=== PATIENT | male | born 1985 | race Caucasian/White ===

== ENCOUNTER 2018-01-15 03:02 | Emergency (ER) | payer SELFPAY ==
--- NOTE | 2018-01-15 03:23 | EDPHYS ---
Physician Documentation [facility] Name: Gregory Pedraza Age: 33 yrs Sex: Male : 1985 Arrival Date: 01/15/2018 Time: 03:08 Bed 19 Private MD: ED Physician Eddie Franks HPI: 01/15 03:19 This 33 yrs old Male presents to ER via Ambulatory with complaints of Insect ma2 Bite - Spider. 03:19 The patient was bitten on the back. Animal information: Patient/Caregiver unable to ma2 provide information related to the animal. Animal information: spider. Secondary to the bite the patient reports pain. Associated signs and symptoms: Pertinent negatives: bony tenderness, erythema at site, loss of consciousness, pain at site, swelling at site. Severity of symptoms: At their worst the symptoms were very mild, in the emergency department the symptoms have resolved. The patient has not experienced similar symptoms in the past. Historical: - Allergies: 03:18 PENICILLINS (Hives, Respiratory distress); bb - Home Meds: 03:18 None [Active]; bb - PMHx: 03:18 None; bb - PSHx: 03:18 None; bb - Immunization history:: Adult Immunizations up to date. - Social history:: Smoking status: Patient uses tobacco products, denies chronic smoking, but will smoke occasionally, Patient uses alcohol, occasionally. Patient/guardian denies using street drugs, Patient/guardian denies using alcohol, The patient lives with family, . - Ebola Screening: : No symptoms or risks identified at this time. - Family history:: not pertinent. ROS: 03:19 Constitutional: Negative for fever, chills, and weight loss, ENT: Negative for injury, ma2 pain, and discharge, Respiratory: Negative for shortness of breath, cough, wheezing, and pleuritic chest pain. 03:19 Skin: Positive for pain that resolved . 03:19 All other systems are negative. Exam: 03:19 Constitutional: This is a well developed, well nourished patient who is awake, alert, ma2 and in no acute distress. Head/Face: Normocephalic, atraumatic. Cardiovascular: Regular rate and rhythm with a normal S1 and S2. No gallops, murmurs, or rubs. Normal PMI, no JVD. No pulse deficits. Respiratory: Lungs have equal breath sounds bilaterally, clear to auscultation and percussion. No rales, rhonchi or wheezes noted. No increased work of breathing, no retractions or nasal flaring. Abdomen/GI: Soft, non-tender, with normal bowel sounds. No distension or tympany. No guarding or rebound. No evidence of tenderness throughout. Skin: Warm, dry with normal turgor. Normal color with no rashes, no lesions, and no evidence of cellulitis. Vital Signs: 03:18 BP 126 / 81; Pulse 62; Resp 16 S; Temp 98.2(O); Pulse Ox 99% on R/A; Weight 81.65 kg bb (R); Height 5 ft. 9 in. (175.26 cm) (R); 03:18 Body Mass Index 26.58 (81.65 kg, 175.26 cm) bb MDM: 03:14 Patient medically screened. ma2 03:19 Differential diagnosis: superficial laceration, cellulitis, spider bite, vs mosquito vs ma2 ant, no skin infection. Data reviewed: vital signs, nurses notes. Counseling: I had a detailed discussion with the patient and/or guardian regarding: the historical points, exam findings, and any diagnostic results supporting the discharge/admit diagnosis, to return to the emergency department if symptoms worsen or persist or if there are any questions or concerns that arise at home. Administered Medications: No medications were administered Disposition: 01/15/18 03:22 Discharged to Home. Impression: Rash and other nonspecific skin eruption. - Condition is Stable. - Discharge Instructions: Allergies. - Medication Reconciliation Form, Thank You Letter, Antibiotic Education, Prescription Opioid Use form. - Follow up: Private Physician; When: As needed; Reason: If symptoms return. - Problem is new. - Symptoms are resolved. Signatures: Jocy Aguiar RN RN bb Alzahri, Mohammad, MD MD ma2 Corrections: (The following items were deleted from the chart) 03:27 03:22 01/15/2018 03:22 Discharged to Home. Impression: Rash and other nonspecific skin bb eruption. Condition is Stable. Forms are Medication Reconciliation Form, Thank You Letter, Antibiotic Education, Prescription Opioid Use. Follow up: Private Physician; When: As needed; Reason: If symptoms return. Problem is new. Symptoms are resolved. ma2
--- NOTE | 2018-01-15 03:23 | ER ---
Nurse's Notes [facility] Name: Gregory Pedraza Age: 33 yrs Sex: Male : 1985 Arrival Date: 01/15/2018 Time: 03:08 Bed 19 Private MD: Diagnosis: Rash and other nonspecific skin eruption Presentation: 01/15 03:17 Presenting complaint: Patient states: he was asleep and felt a stinging sensation under bb left axillary area thinks he was bit by a spider. Transition of care: patient was not received from another setting of care. Onset of symptoms was January 15, 2018. Risk Assessment: Do you want to hurt yourself or someone else? Patient reports no desire to harm self or others. Initial Sepsis Screen: Does the patient meet any 2 criteria? No. Patient's initial sepsis screen is negative. Does the patient have a suspected source of infection? No. Patient's initial sepsis screen is negative. Care prior to arrival: None. 03:17 Method Of Arrival: Ambulatory bb 03:17 Acuity: TAMERA 5 bb Triage Assessment: 03:18 Bite description: bite sustained to left axillary area by unknown, animal information: bb vaccination(s) is not applicable. Historical: - Allergies: 03:18 PENICILLINS (Hives, Respiratory distress); bb - Home Meds: 03:18 None [Active]; bb - PMHx: 03:18 None; bb - PSHx: 03:18 None; bb - Immunization history:: Adult Immunizations up to date. - Social history:: Smoking status: Patient uses tobacco products, denies chronic smoking, but will smoke occasionally, Patient uses alcohol, occasionally. Patient/guardian denies using street drugs, Patient/guardian denies using alcohol, The patient lives with family, . - Ebola Screening: : No symptoms or risks identified at this time. - Family history:: not pertinent. Screenin:25 Abuse screen: Denies threats or abuse. Nutritional screening: No deficits noted. bb Tuberculosis screening: No symptoms or risk factors identified. Fall Risk None identified. Assessment: 03:25 General: Appears in no apparent distress. Behavior is calm, cooperative. Pain: Denies bb pain. Neuro: Level of Consciousness is awake, alert, obeys commands, Oriented to person, place, time, situation. Cardiovascular: No deficits noted. Respiratory: Respiratory effort is even, unlabored. GI: No deficits noted. No signs and/or symptoms were reported involving the gastrointestinal system. Derm: Skin is intact, is healthy with good turgor, Skin is pink, warm \T\ dry. Musculoskeletal: Circulation, motion, and sensation intact. 03:26 Reassessment: pt verbalized understanding of and agrees to plan of care discharge bb instructions given pt ambulated with steady gait to exit accompanied by family. Vital Signs: 03:18 BP 126 / 81; Pulse 62; Resp 16 S; Temp 98.2(O); Pulse Ox 99% on R/A; Weight 81.65 kg bb (R); Height 5 ft. 9 in. (175.26 cm) (R); 03:18 Body Mass Index 26.58 (81.65 kg, 175.26 cm) bb ED Course: 03:08 Patient arrived in ED. am2 03:14 Eddie Franks MD is Attending Physician. ma2 03:18 Triage completed. bb 03:18 Arm band placed on Patient placed in an exam room, on a stretcher, on pulse oximetry. bb Family accompanied patient. 03:25 Jocy Aguiar, SYLVESTER is Primary Nurse. bb 03:25 Patient has correct armband on for positive identification. Call light in reach. Pulse bb ox on. NIBP on. 03:25 No provider procedures requiring assistance completed. Patient did not have IV access bb during this emergency room visit. Administered Medications: No medications were administered Outcome: 03:22 Discharge ordered by . ma2 03:26 Discharged to home ambulatory, with family. bb 03:26 Condition: stable 03:26 Discharge instructions given to patient, Instructed on discharge instructions, follow up and referral plans. Demonstrated understanding of instructions, follow-up care. 03:27 Patient left the ED. bb Signatures: Jocy Aguiar RN RN bb Moreno, Amanda am2 Eddie Franks MD MD [facility]
== END 2018-01-15 03:27 | disposition home or self-care (01) ==
LOC: ER 03:02
DX: R21 Rash and other nonspecific skin eruption (principal); F17.200 Nicotine dependence, unspecified, uncomplicated
CPT/HCPCS: 99283

== ENCOUNTER 2022-02-05 14:14 | Emergency (ER) | payer OTHER, SELFPAY ==
--- OUTSIDE RECORDS SUMMARY | 2022-02-05 14:18 | XMS REPORT | Continuity of Care Document ---
:[address] [facility] t Address [address] [place] [address] Care Team Providers Name Role Phone Robert, Janneth Attending Clinician Unavailable Problems This patient has no known problems. Allergies, Adverse Reactions, Alerts This patient has no known allergies or adverse reactions. Medications This patient has no known medications. Procedures This patient has no known procedures. Encounters Start End Encounter Admission Attending Care Care Encounter Source Date/Time Date/Time Type Type Clinicians Facility Department ID 2021-08-16 Outpatient Jakob [facility] [id number] Common 15:09:04 Janneth [facility] 2021-07-27 Outpatient NILSON Robert [facility] [id number] Common 14:36:53 Janneth [facility] 2021-07-19 2021-07-19 ambulatory [facility] [id number] Common 00:00:00 00:00:00 [facility] Results This patient has no known results.
[2022-02-05] MEDS ORDERED: NA CHLORIDE 0.9% 1,000 ML ONE (15:11)
[2022-02-05 15:16] LABS: Absolute Lymphocytes (CBC) 2.4 K/uL (0.7-4.9); Hematocrit 41.1 % (39.6-49.0); Lymphocytes % 40.9 % (15.3-44.8); MCV 85.9 fL (80-100); MPV 6.8 fL (7.6-11.3); RBC Red Blood Cell Count 4.79 M/uL (4.33-5.43)
[2022-02-05 15:22] LABS: Urine Blood Negative (Negative); Urine Glucose Negative (Negative); Urine Protein Negative (Negative); Urine Specific Gravity 1.025 (1.005-1.030); Urine pH 5.5 (5.0-7.0)
[2022-02-05 15:33] LABS: Potassium 3.9 mmol/L (3.5-5.1); Troponin High Sensitivity 4.1 pg/mL (<58.9)
[2022-02-05 15:43] LABS: Barbiturates NEGATIVE (NEGATIVE); Benzodiazepines NEGATIVE (NEGATIVE); Cocaine NEGATIVE (NEGATIVE); METHAMPHETAM NEGATIVE (NEGATIVE); Methadone NEGATIVE (NEGATIVE); Opiates NEGATIVE (NEGATIVE); Phencyclidine NEGATIVE (NEGATIVE); THC Cannibis POSITIVE (NEGATIVE)
--- NOTE | 2022-02-05 16:04 | RAD REPORT ---
EXAM DESCRIPTION: Eduardo Single View02/05/2022 3:45 pm CLINICAL HISTORY: Chest pain COMPARISON: none FINDINGS: The lungs appear clear of acute infiltrate. The heart is normal size IMPRESSION: No acute abnormalities displayed
--- NOTE | 2022-02-05 16:09 | ER ---
Nurse's Notes [facility] Name: Gregory Pedraza Age: 37 yrs Sex: Male : 1985 Arrival Date: 02/05/2022 Time: 14:15 Bed 17 Private MD: Diagnosis: Other specified anxiety disorders Presentation: 02/05 14:31 Chief complaint: Patient states: has been having numbness in left arm X 4 days, today iw was sitting and playing cards and felt like he was going to pass out , I felt a lot of pressure in my upper body, on the way over here I felt like maybe a panic attack and felt like I was going to pass out , right now my upper right arm is hurting and my fingers are going numb. Coronavirus screen: At this time, the client does not indicate any symptoms associated with coronavirus-19. Ebola Screen: Patient negative for fever greater than or equal to 101.5 degrees Fahrenheit, and additional compatible Ebola Virus Disease symptoms Patient denies exposure to infectious person. Patient denies travel to an Ebola-affected area in the 21 days before illness onset. No symptoms or risks identified at this time. Initial Sepsis Screen: Does the patient meet any 2 criteria? No. Patient's initial sepsis screen is negative. Does the patient have a suspected source of infection? No. Patient's initial sepsis screen is negative. Risk Assessment: Do you want to hurt yourself or someone else? Patient reports no desire to harm self or others. Onset of symptoms was February 01, 2022. 14:31 Method Of Arrival: Ambulatory iw 14:31 Acuity: TAMERA 3 iw Triage Assessment: 14:40 General: Appears in no apparent distress. Behavior is calm, cooperative, appropriate ll1 for age. Respiratory: Reports shortness of breath none now the patient has mild shortness of breath. Respiratory: Airway is patent Trachea midline Respiratory effort is even, unlabored. Historical: - Allergies: 14:34 PENICILLINS (Hives, Respiratory distress); iw - Home Meds: 14:34 None [Active]; iw - PMHx: 14:35 None; iw - PSHx: 14:34 None; iw - Immunization history:: Adult Immunizations unknown. - Social history:: Smoking status: Patient uses street drugs, marijuana. Screenin:40 Abuse screen: Denies threats or abuse. Nutritional screening: No deficits noted. ll1 Tuberculosis screening: No symptoms or risk factors identified. Fall Risk Total Carmichael Fall Scale indicates No Risk (0-24 pts). Assessment: 14:40 General: Appears in no apparent distress. Behavior is calm, cooperative, appropriate ll1 for age. Pain: Complains of pain in left arm Quality of pain is described as aching, pressure, Pain began 2-3 days ago. Is intermittent, episodic. Cardiovascular: Heart tones S1 S2 Rhythm is regular. Respiratory: Airway is patent Respiratory effort is even, unlabored, Breath sounds are clear bilaterally. Musculoskeletal: Reports numbness in left arm pain in left arm. 15:40 Reassessment: No changes from previously documented assessment. Patient and/or family ll1 updated on plan of care and expected duration. Pain level reassessed. 16:24 Reassessment: Patient appears in no apparent distress at this time. Patient is alert, vg1 oriented x 3, equal unlabored respirations, skin warm/dry/pink. Patient denies pain at this time. Patient states feeling better. Vital Signs: 14:31 BP 133 / 82; Pulse 74; Resp 16; Temp 98.1; Pulse Ox 98% on R/A; Weight 97.52 kg; Height iw 5 ft. 10 in. (177.80 cm); 16:24 BP 125 / 69; Pulse 80; Resp 16; Pulse Ox 100% on R/A; vg1 14:31 Body Mass Index 30.85 (97.52 kg, 177.80 cm) iw ED Course: 14:15 Patient arrived in ED. as 14:34 Triage completed. iw 14:35 Arm band placed on. iw 14:38 Patient placed in an exam room, on a stretcher. ll1 14:39 Alex Turner is PHCP. jl9 14:39 Dong Mchugh MD is Attending Physician. jl9 14:40 Patient has correct armband on for positive identification. Bed in low position. Call ll1 light in reach. Side rails up X 1. Client placed on continuous cardiac and pulse oximetry monitoring. NIBP monitoring applied. 14:48 Cricket White, SYLVESTER is Primary Nurse. ll1 15:47 XRAY Chest (1 view) In Process Unspecified. EDMS 16:08 Dong Mchugh MD is Referral Physician. jl9 16:25 No provider procedures requiring assistance completed. IV discontinued, intact, vg1 bleeding controlled, No redness/swelling at site. Pressure dressing applied. Administered Medications: 15:14 Drug: NS 0.9% 1000 ml Route: IV; Rate: 1000 ml; Site: right antecubital; ll1 16:25 Follow up: Response: No adverse reaction; IV Status: Completed infusion; IV Intake: ll1 1000ml Medication: 14:38 VIS not applicable for this client. ll1 Intake: 16:25 IV: 1000ml; Total: 1000ml. ll1 Outcome: 16:08 Discharge ordered by MD. stevenson 16:25 Discharged to home ambulatory. vg1 16:25 Condition: good 16:25 Discharge instructions given to patient, Instructed on discharge instructions, follow up and referral plans. medication usage, Demonstrated understanding of instructions, follow-up care, medications, Prescriptions given X 1. 16:32 Patient left the ED. 1 Signatures: Dispatcher [employer] Toma Noel Irene, RN RN iw Garcia, Victoria RN RN [email or web address] Cricket White RN RN ll1 Alex Turner9 Corrections: (The following items were deleted from the chart) 14:35 14:31 Pulse 74bpm; Resp 16bpm; Pulse Ox 98% RA; 97.52 kg; Height 5 ft. 10 in.; BMI: iw 30.8; iw
--- NOTE | 2022-02-05 16:09 | EDPHYS ---
Physician Documentation [facility] Name: Gregory Pedraza Age: 37 yrs Sex: Male : 1985 Arrival Date: 02/05/2022 Time: 14:15 Bed 17 Private MD: ED Physician Dong Mchugh HPI: 02/05 15:42 This 37 yrs old Male presents to ER via Ambulatory with complaints of jl9 Numbness Of Arm, Near Syncope, Shortness Of Breath, all earlier today. Currently asymptomatic. Patient reports that he has udiagnosed anxiety. . 15:42 The complaints affect the posterior aspect of left shoulder, left axilla, left tricep, jl9 left elbow, left wrist, left hand and palmar aspect of left forearm. Context: resulted from. Onset: The symptoms/episode began/occurred this morning. Associated signs and symptoms:. Severity of symptoms: in the emergency department the symptoms have resolved. Historical: - Allergies: 14:34 PENICILLINS (Hives, Respiratory distress); iw - Home Meds: 14:34 None [Active]; iw - PMHx: 14:35 None; iw - PSHx: 14:34 None; iw - Immunization history:: Adult Immunizations unknown. - Social history:: Smoking status: Patient uses street drugs, marijuana. ROS: 15:44 Constitutional: Negative for fever, chills, and weight loss, Eyes: Negative for injury, jl9 pain, redness, and discharge, ENT: Negative for injury, pain, and discharge, Neck: Negative for injury, pain, and swelling, Cardiovascular: Negative for chest pain, palpitations, and edema, Respiratory: Negative for shortness of breath, cough, wheezing, and pleuritic chest pain, Abdomen/GI: Negative for abdominal pain, nausea, vomiting, diarrhea, and constipation, Back: Negative for injury and pain, : Negative for injury, bleeding, discharge, and swelling, MS/Extremity: Negative for injury and deformity, Skin: Negative for injury, rash, and discoloration, Neuro: Negative for headache, weakness, numbness, tingling, and seizure, Psych: Negative for depression, anxiety, suicide ideation, homicidal ideation, and hallucinations, Allergy/Immunology: Negative for hives, rash, and allergies, Endocrine: Negative for neck swelling, polydipsia, polyuria, polyphagia, and marked weight changes. Exam: 15:44 Constitutional: This is a well developed, well nourished patient who is awake, alert, jl9 and in no acute distress. Head/Face: Normocephalic, atraumatic. Eyes: Pupils equal round and reactive to light, extra-ocular motions intact. Lids and lashes normal. Conjunctiva and sclera are non-icteric and not injected. Cornea within normal limits. Periorbital areas with no swelling, redness, or edema. ENT: Mucous membranes moist. Neck: Trachea midline, no thyromegaly or masses palpated, and no cervical lymphadenopathy. Supple, full range of motion without nuchal rigidity, or vertebral point tenderness. No Meningismus. Chest/axilla: Normal chest wall appearance and motion. Nontender with no deformity. No lesions are appreciated. Cardiovascular: Regular rate and rhythm with a normal S1 and S2. No gallops, murmurs, or rubs. Normal PMI, no JVD. No pulse deficits. Respiratory: Lungs have equal breath sounds bilaterally, clear to auscultation and percussion. No rales, rhonchi or wheezes noted. No increased work of breathing, no retractions or nasal flaring. Abdomen/GI: Soft, non-tender, with normal bowel sounds. No distension or tympany. No guarding or rebound. No evidence of tenderness throughout. Back: No spinal tenderness. No costovertebral tenderness. Full range of motion. Skin: Warm, dry with normal turgor. Normal color with no rashes, no lesions, and no evidence of cellulitis. MS/ Extremity: Pulses equal, no cyanosis. Neurovascular intact. Full, normal range of motion. Neuro: Awake and alert, GCS 15, oriented to person, place, time, and situation. Cranial nerves II-XII grossly intact. Motor strength 5/5 in all extremities. Sensory grossly intact. Cerebellar exam normal. Normal gait. Psych: Awake, alert, with orientation to person, place and time. Behavior, mood, and affect are within normal limits. Vital Signs: 14:31 BP 133 / 82; Pulse 74; Resp 16; Temp 98.1; Pulse Ox 98% on R/A; Weight 97.52 kg; Height iw 5 ft. 10 in. (177.80 cm); 16:24 BP 125 / 69; Pulse 80; Resp 16; Pulse Ox 100% on R/A; vg1 14:31 Body Mass Index 30.85 (97.52 kg, 177.80 cm) iw MDM: 14:39 Patient medically screened. [facility] 15:42 Test interpretation: by ED physician or midlevel provider: ECG, NSR 64bpm. [facility] 15:45 Data reviewed: vital signs, nurses notes. 16:07 Counseling: I had a detailed discussion with the patient and/or guardian regarding: the [facility] historical points, exam findings, and any diagnostic results supporting the discharge/admit diagnosis, lab results, the need for outpatient follow up, to return to the emergency department if symptoms worsen or persist or if there are any questions or concerns that arise at home. 02/05 14:40 Order name: Basic Metabolic Panel; Complete Time: 15:45 02/05 14:40 Order name: CBC with Diff; Complete Time: 15:45 [facility] 02/05 14:40 Order name: Troponin HS; Complete Time: 15:45 [facility] 02/05 14:40 Order name: XRAY Chest (1 view); Complete Time: 16:07 02/05 14:40 Order name: UDS; Complete Time: 15:45 02/05 15:22 Order name: Urine Dipstick-Ancillary; Complete Time: 15:45 [facility] 02/05 14:40 Order name: EKG; Complete Time: 14:41 02/05 14:40 Order name: Cardiac monitoring; Complete Time: 15:14 [facility] 02/05 14:40 Order name: EKG - Nurse/Tech; Complete Time: 15:01 [facility] 02/05 14:40 Order name: IV Saline Lock; Complete Time: 14:48 02/05 14:40 Order name: Labs collected and sent; Complete Time: 14:48 02/05 14:40 Order name: Urine Dipstick-Ancillary (obtain specimen); Complete Time: 15:18 Administered Medications: 15:14 Drug: NS 0.9% 1000 ml Route: IV; Rate: 1000 ml; Site: right antecubital; ll1 16:25 Follow up: Response: No adverse reaction; IV Status: Completed infusion; IV Intake: ll1 1000ml Disposition Summary: 02/05/22 16:08 Discharge Ordered Location: Home jl9 Condition: Stable jl9 Diagnosis - Other specified anxiety disorders jl9 Followup: jl9 - With: Dong Mchugh MD - When: 1 - 2 days - Reason: Recheck today's complaints, Continuance of care, Re-evaluation by your physician Discharge Instructions: - Discharge Summary Sheet jl9 - Managing Anxiety, Adult jl9 Forms: - Medication Reconciliation Form jl9 - Thank You Letter jl9 - Antibiotic Education jl9 - Prescription Opioid Use jl9 Prescriptions: - Hydroxyzine HCl 25 mg Oral Tablet - take 1 tablet by ORAL route every 6 hours As needed; 30 tablet; Refills: 0, jl9 Product Selection Permitted Signatures: Dispatcher [employer] EDJyotsna Hastings RN RN iw Lewis, Lynsay, RN RN [facility] Alex Turner jl9
[2022-02-05 16:50] VITALS: TEMP 98.1
[2022-02-05 16:52] VITALS: BP 125/69; O2SAT 100
--- NOTE | 2022-02-06 13:46 | EKG ---
Test Date: 2022-02-05 Test Time: 15:02:18 Tree Farmer: [place] MEASUREMENT RESULTS: Intervals: Rate: 64 MA: 152 QRSD: 84 QT: 358 QTc: 369 [place]: P: 47 MA: 152 QRS: 70 T: 72 INTERPRETIVE STATEMENTS: Normal sinus rhythm with sinus arrhythmia Normal ECG No previous ECG available for comparison Electronically Signed On 02-06-22 13:43:42 CDT by Sawyer Elizabeth
== END 2022-02-05 16:32 | disposition home or self-care (01) ==
LOC: ER 14:14
DX: F41.8 Other specified anxiety disorders (principal); R55 Syncope and collapse; Z88.0 Allergy status to penicillin
CPT/HCPCS: 93005; 85025; 80048; 36415; 81003; 84484; 80307; 71045; 96360; 99283; J7030

== ENCOUNTER 2022-06-29 09:49 | Emergency (ER) | payer OTHER, SELFPAY ==
--- OUTSIDE RECORDS SUMMARY | 2022-06-29 09:53 | XMS REPORT | Continuity of Care Document ---
:1985 Author Organization [facility] t Address [address] [place] [address] Care Team Providers Name Role Phone Jakob Janneth Attending Clinician Unavailable Payers Payer Name Policy Type Policy Number Effective Date Expiration Date S [place] [id number] [id number] [facility] Blue Cross Blue 6 [id number] 2018 [facility] 00:00:00 [facility] Problems Condition Condition Condition Status Onset Resolution Last Treating Co mments Source Name Details Category Date Date Treatment Clinician Date [id number] Marijuana Problem Active Comm on abuse [facility] Allergies, Adverse Reactions, Alerts Allergy Allergy Status Severity Reaction(s) Onset Inactive Treating Comm ents Source Name Type Date Date Clinician penicill penicill Active Unknown Commo n in V in V [facility] Social History Social Habit Start Date Stop Date Quantity Comments Source History of Tobacco Use Co mmon [facility] Sex Assigned At Com mon [facility] Smoking Status Start Date Stop Date Source Former Smoker 2022-02-06 00:00:00 2022-02-06 00:00:00 [facility] Medications Ordered Filled Start Stop Current Ordering Indication Dosage Frequency Signature Comments Components Source Medication Medication Date Date Medication? Clinician (SIG) Name Name Ibuprofen Ibuprofen No TID Ibuprofen 800 MG 800 MG 800 MG Ibuprofen Ibuprofen No TID Ibuprofen 800 MG 800 MG 800 MG hydrOXYzine hydrOXYzine No 1{table QD hydrOXYzin HCl 25 MG HCl 25 MG t_at_be e HCl 25 dtime_a MG s_neede d} Ibuprofen Ibuprofen No TID Ibuprofen 800 MG 800 MG 800 MG hydrOXYzine hydrOXYzine No 1{table QD hydrOXYzin HCl 25 MG HCl 25 MG t_at_be e HCl 25 dtime_a MG s_neede d} Vital Signs Vital Name Observation Time Observation Value Comments Source height 2022-02-07 08:20:00 70 [in_i] [facility] weight 2022-02-07 08:20:00 215 [lb_av] [facility] bmi 2022-02-07 08:20:00 30.85 kg/m2 [facility] blood pressure 2022-02-07 08:20:00 135 mm[Hg] [facility] blood pressure 2022-02-07 08:20:00 83 mm[Hg] [facility] - diastolic [facility] height 2021-07-19 11:00:00 70 [in_i] [facility] weight 2021-07-19 11:00:00 221.0 [lb_av] [facility] temperature 2021-07-19 11:00:00 97.9 [degF] [facility] bmi 2021-07-19 11:00:00 31.71 kg/m2 [facility] oximetry 2021-07-19 11:00:00 98 % [facility] respiratory rate 2021-07-19 11:00:00 16 /min Comm on [facility] blood pressure 2021-07-19 11:00:00 132 mm[Hg] Common [facility] - systolic [facility] blood pressure 2021-07-19 11:00:00 70 mm[Hg] [facility] Procedures This patient has no known procedures. Encounters Start End Encounter Admission Attending Care Care Encounter Source Date/Time Date/Time Type Type Clinicians Facility Department ID 2022-03-[address] [facility] [id number] Common 14:09:02 Janneth [facility] 2022-02-06 Outpatient Robert, STLMLC STLMLC [id number] Common 08:26:02 Janneth [facility] 2021-08-16 Outpatient Robert, STLMLC STLMLC [id number] Common 15:09:04 Janneth [facility] 2021-07-27 Outpatient Robert, STLMLC STLMLC [id number] Common 14:36:53 Janneth [facility] 2022-02-07 2022-02-07 OFFICE STLMLC STLMLC [id number] Co mmon 00:00:00 00:00:00 VISIT EST Spir it PT LEVEL 3 [facility] 2022-02-06 2022-02-06 (TEL) STLMLC STLMLC [id number] Co mmon 00:00:00 00:00:00 [facility] 2021-07-19 2021-07-19 OFFICE STLMLC STLMLC [id number] Co mmon 00:00:00 00:00:00 VISIT EST Spir it PT LEVEL 3 [facility] Results This patient has no known results.
[2022-06-29 11:24] LABS: Absolute Lymphocytes (CBC) 1.4 K/uL (0.7-4.9); Hematocrit 43.7 % (39.6-49.0); Lymphocytes % 18.6 % (15.3-44.8); MCV 85.8 fL (80-100); MPV 6.7 fL (7.6-11.3); RBC Red Blood Cell Count 5.09 M/uL (4.33-5.43)
[2022-06-29 11:43] LABS: Albumin 4.1 g/dL (3.4-5.0); Bilirubin Direct 0.1 mg/dL (0-0.2); Bilirubin Total 0.5 mg/dL (0.2-1.0); Potassium 4.1 mmol/L (3.5-5.1); Protein, Total 7.7 g/dL (6.4-8.2); Troponin High Sensitivity 9.9 pg/mL (<58.9)
--- NOTE | 2022-06-29 11:59 | RAD REPORT ---
EXAM DESCRIPTION: RAD - Chest Single View - 06/29/2022 11:49 am CLINICAL HISTORY: epigastric pain COMPARISON: Chest Single View dated 02/05/2022 FINDINGS: Lines: None. Lungs: No evidence of edema or pneumonia. Pleural: No significant pleural effusions or pneumothorax. Cardiac: The heart size is within normal limits. Mediastinum: Within normal limits. Bones: No acute fractures. Other: None IMPRESSION: No acute cardiopulmonary disease.
--- NOTE | 2022-06-29 13:15 | EDPHYS ---
Physician Documentation [facility] Name: Gregory Pedraza Age: 37 yrs Sex: Male : 1985 Arrival Date: 06/29/2022 Time: 09:52 Bed IW2 Private MD: ED Physician Neyda Borja HPI: 06/29 11:05 This 37 yrs old Male presents to ER via Ambulatory with complaints of Weakness - after cp workout, shaky. 11:05 The patient has experienced near-syncope. cp 11:05 Onset: The symptoms/episode began/occurred this morning, after working out. cp 11:05 Current symptoms: Currently, the patient is not experiencing any symptoms, the patient cp feels back to baseline. Patient reports working out this morning and after taking shower had episode of general weakness, felt shaky, lightheaded and almost lost consciousness. Denies chest pain. Reports intermittent epigastric abdominal pain for past 2 months. Historical: - Allergies: 11:38 PENICILLINS; bp - Home Meds: 11:38 None [Active]; bp - PMHx: 11:38 None; bp - Immunization history:: Adult Immunizations up to date. - Social history:: Smoking status: Patient denies any tobacco usage or history of. ROS: 11:10 Constitutional: Negative for body aches, chills, fever, poor PO intake. cp 11:10 Eyes: Negative for injury, pain, redness, and discharge. cp 11:10 ENT: Negative for drainage from ear(s), ear pain, sore throat, difficulty swallowing, difficulty handling secretions. 11:10 Cardiovascular: Negative for chest pain, edema, palpitations. 11:10 Respiratory: Negative for cough, shortness of breath, wheezing. 11:10 Abdomen/GI: Positive for abdominal pain, of the epigastric area, intermittent pain, Negative for nausea, vomiting, and diarrhea, constipation, anorexia, black/tarry stool, rectal bleeding. 11:10 Back: Negative for pain at rest, pain with movement. cp 11:10 Neuro: Positive for near syncope, weakness, Negative for altered mental status, headache, numbness. 11:10 All other systems are negative. Exam: 11:15 Constitutional: The patient appears in no acute distress, alert, awake, comfortable, cp non-diaphoretic, non-toxic, well developed, well nourished. 11:15 Head/Face: Normocephalic, atraumatic. cp 11:15 Eyes: Periorbital structures: appear normal, Conjunctiva: normal, no exudate, no injection, Sclera: no appreciated abnormality, Lids and lashes: appear normal, bilaterally. 11:15 ENT: External ear(s): are unremarkable, Nose: is normal, Mouth: Lips: moist, Oral mucosa: pink and intact, moist, Posterior pharynx: Airway: no evidence of obstruction, patent, erythema, is not appreciated, exudate, is not appreciated. 11:15 Neck: ROM/movement: is normal, is supple, without pain, no range of motions limitations. 11:15 Chest/axilla: Inspection: normal, Palpation: is normal, no crepitus, no tenderness. 11:15 Cardiovascular: Rate: normal, Rhythm: regular, Heart sounds: murmur, not appreciated, Edema: is not appreciated, JVD: is not appreciated. 11:15 Respiratory: the patient does not display signs of respiratory distress. 11:15 Abdomen/GI: Inspection: abdomen appears normal, Palpation: abdomen is soft and non-tender, in all quadrants. 11:15 Back: pain, is absent, ROM is normal. 11:15 Neuro: Orientation: to person, place \T\ time. Mentation: is normal, Motor: moves all cp fours, strength is normal, Sensation: is normal, Gait: is steady, at a normal pace, without difficulty. 11:45 ECG was reviewed by the Attending Physician. cp Vital Signs: 11:36 BP 143 / 92; Pulse 73; Resp 16; Temp 98; Pulse Ox 98% ; Weight 90.72 kg; Height 5 ft. bp 10 in. (177.80 cm); 11:36 Body Mass Index 28.70 (90.72 kg, 177.80 cm) bp MDM: 11:58 Patient medically screened. cp 12:00 Differential Diagnosis: cardiac arrhythmia, drug effect, GI bleed, vasovagal episode. cp 13:14 Data reviewed: vital signs, nurses notes. cp 13:14 Test interpretation: by ED physician or midlevel provider: ECG, plain radiologic cp studies. Counseling: I had a detailed discussion with the patient and/or guardian regarding: the historical points, exam findings, and any diagnostic results supporting the discharge/admit diagnosis, lab results, radiology results, the need for outpatient follow up, a family practitioner, to return to the emergency department if symptoms worsen or persist or if there are any questions or concerns that arise at home. ED course: VSS. Labs, EKG and chest xray reviewed. Patient denies significant family history of cardiac disease but reports not knowing family history of biological parents. Will discharge to home for continued monitoring. 06/29 11:02 Order name: Basic Metabolic Panel; Complete Time: 12: cp 06/29 12:31 Interpretation: Normal except: GLUC 108. cp 06/29 11:02 Order name: CBC with Diff; Complete Time: 12: cp 06/29 12: Interpretation: Normal except: MPV 6.7; SWAPNA% 74.1. cp 06/29 11:02 Order name: D-Dimer; Complete Time: 12: cp 06/29 11:02 Order name: LFT's; Complete Time: 12: cp 06/29 11:02 Order name: Troponin HS; Complete Time: 12: cp 06/29 11:02 Order name: CK; Complete Time: 12: cp 06/29 11:02 Order name: XRAY Chest (1 view); Complete Time: 12: cp 06/29 11:02 Order name: EKG; Complete Time: 11: cp 06/29 11:02 Order name: EKG - Nurse/Tech; Complete Time: :40 cp 06/29 11:02 Order name: IV Saline Lock; Complete Time: : cp 06/29 11:02 Order name: Labs collected and sent; Complete Time: : cp 06/29 11:02 Order name: O2 Per Protocol; Complete Time: :40 cp 06/29 11:02 Order name: O2 Sat Monitoring; Complete Time: :40 cp EC:45 Rate is 67 beats/min. Rhythm is regular. IN interval is normal. QRS interval is normal. cp QT interval is normal. T waves are Inverted in lead aVR. Interpreted by me. Reviewed by me. Administered Medications: No medications were administered Disposition Summary: 06/29/22 13:14 Discharge Ordered Location: Home cp Problem: new cp Symptoms: have improved cp Condition: Stable cp Diagnosis - Syncope Near cp - Other fatigue cp Followup: cp - With: Private Physician - When: 2 - 3 days - Reason: Worsening of condition Discharge Instructions: - Discharge Summary Sheet cp - Near-Syncope cp - Fatigue cp Forms: - Medication Reconciliation Form cp - Thank You Letter cp - Antibiotic Education cp - Prescription Opioid Use cp Addendum: 07/03/2022 17:39 STAFF ATTESTATION STATEMENT: I was immediately available onsite in the emergency s d2 department for consultation in the care of this patient. I did not see or examine this patient. Neyda Borja MD. Signatures: Dispatcher [employer] EDMS Dong Vásquez PA PA cp Peltier, Brian, RN RN bp Neyda Borja MD MD sd2 Corrections: (The following items were deleted from the chart) 06/30 12:47 06/29 11:05 Patient reports working out this morning and after taking shower had cp episode of general weakness, felt shaky, lightheaded and almost lost consciousness. Denies chest pain, denies abdominal pain. cp
--- NOTE | 2022-06-29 13:15 | ER ---
Nurse's Notes [facility] Name: Gregory Pedraza Age: 37 yrs Sex: Male : 1985 Arrival Date: 06/29/2022 Time: 09:52 Bed IW2 Private MD: Diagnosis: Syncope Near;Other fatigue Presentation: 06/29 11:36 Chief complaint: Patient states: NEAR SYNCOPE, WEAKNESS AND DIAPHORESIS AFTER WORKOUT bp THIS AM. Coronavirus screen: At this time, the client does not indicate any symptoms associated with coronavirus-19. Ebola Screen: No symptoms or risks identified at this time. 11:36 Method Of Arrival: Ambulatory bp 11:38 Initial Sepsis Screen: Does the patient meet any 2 criteria? No. Patient's initial bp sepsis screen is negative. Does the patient have a suspected source of infection? No. Patient's initial sepsis screen is negative. Risk Assessment: Do you want to hurt yourself or someone else? Patient reports no desire to harm self or others. Onset of symptoms was June 29, 2022 at 06:00. 11:38 Acuity: TAMERA 3 bp Triage Assessment: 11:38 General: Appears in no apparent distress. Behavior is cooperative, appropriate for age, bp anxious. Pain: Denies pain. EENT: No deficits noted. Neuro: No deficits noted. Cardiovascular: No deficits noted. Respiratory: No deficits noted. GI: No signs and/or symptoms were reported involving the gastrointestinal system. : No signs and/or symptoms were reported regarding the genitourinary system. Derm: No deficits noted. Musculoskeletal: No deficits noted. Historical: - Allergies: 11:38 PENICILLINS; bp - Home Meds: 11:38 None [Active]; bp - PMHx: 11:38 None; bp - Immunization history:: Adult Immunizations up to date. - Social history:: Smoking status: Patient denies any tobacco usage or history of. Vital Signs: 11:36 BP 143 / 92; Pulse 73; Resp 16; Temp 98; Pulse Ox 98% ; Weight 90.72 kg; Height 5 ft. bp 10 in. (177.80 cm); 11:36 Body Mass Index 28.70 (90.72 kg, 177.80 cm) bp ED Course: 09:52 Patient arrived in ED. am2 09:53 Dong Vásquez PA is PHCP. cp 09:53 Neyda Borja MD is Attending Physician. cp 11:29 Troponin HS Sent. rs5 11:29 LFT's Sent. rs5 11:29 CBC with Diff Sent. rs5 11:29 Basic Metabolic Panel Sent. rs5 11:30 Inserted saline lock: in right antecubital area, using aseptic technique. Blood rs5 collected. 11:38 Triage completed. bp 11:38 Arm band placed on. bp 11:50 XRAY Chest (1 view) In Process Unspecified. EDMS Administered Medications: No medications were administered Outcome: 13:14 Discharge ordered by . cp 13:24 Patient left the ED. kb Signatures: Dispatcher [employer] EDMS Ruthann Chaney, ROTOR COIL TAPER-C ROTOR COIL TAPER-Ckb Dong Vásquez PA PA cp Moreno, Amanda am2 Peltier, Brian, RN RN bp Iglesia Castillo rs5
[2022-06-29 13:34] VITALS: BP 143/92; TEMP 98; O2SAT 98
--- NOTE | 2022-06-30 14:52 | EKG ---
Test Date: 2022-06-29 Test Time: 11:38:18 Upper Inspector: LORI MEASUREMENT RESULTS: Intervals: Rate: 67 GA: 142 QRSD: 82 QT: 366 QTc: 386 [place]: P: 38 GA: 142 QRS: 60 T: 66 INTERPRETIVE STATEMENTS: Normal sinus rhythm with sinus arrhythmia Normal ECG Compared to ECG 02/05/2022 15:02:18 No significant changes Electronically Signed On 06-30-22 14:50:46 ELECTRONIC EQUIPMENT SET UP OPERATOR by Sawyer Elizabeth
== END 2022-06-29 13:24 | disposition home or self-care (01) ==
LOC: ER 09:49
DX: R55 Syncope and collapse (principal); R53.83 Other fatigue; R10.13 Epigastric pain; R53.1 Weakness; Z88.0 Allergy status to penicillin
CPT/HCPCS: 36415; 71045; 80048; 80076; 82550; 84484; 85025; 85379; 93005; 99283

== ENCOUNTER 2023-02-27 08:06 | Emergency (ER) | payer SELFPAY ==
--- OUTSIDE RECORDS SUMMARY | 2023-02-27 08:09 | XMS REPORT | Continuity of Care Document ---
:[address] [facility] t Address [address] [place] [address] [address] [place] [address] Care Team Providers Name Role Phone Jakob Janneth Attending Clinician Unavailable Payers Payer Name Policy Type Policy Number Effective Date Expiration Date S [place] [id number] [facility] Blue Cross Blue 6 [id number] 2018 [facility] 00:00:00 [facility] Problems Condition Condition Condition Status Onset Resolution Last Treating Co mments Source Name Details Category Date Date Treatment Clinician Date [id number] Marijuana Problem Active Comm on abuse [facility] Allergies, Adverse Reactions, Alerts Allergy Allergy Status Severity Reaction(s) Onset Inactive Treating Comm ents Source Name Type Date Date Clinician penicill penicill Active Unknown Commo n in V in V [facility] Social History Social Habit Start Date Stop Date Quantity Comments Source History of Tobacco Use Co mmon [facility] Sex Assigned At Com mon [facility] Smoking Status Start Date Stop Date Source Former Smoker 2022-02-06 00:00:00 2022-02-06 00:00:00 [facility] Medications Ordered Filled Start Stop Current Ordering [...] Comments Source height 2022-02-07 08:20:00 70 [in_i] [facility] weight 2022-02-07 08:20:00 215 [lb_av] [facility] bmi 2022-02-07 08:20:00 30.85 kg/m2 [facility] blood pressure 2022-02-07 08:20:00 135 mm[Hg] [facility] systolic [facility] blood pressure 2022-02-07 08:20:00 83 mm[Hg] [facility] - diastolic [facility] height 2021-07-19 11:00:00 70 [in_i] [facility] weight 2021-07-19 11:00:00 221.0 [lb_av] [facility] temperature 2021-07-19 11:00:00 97.9 [degF] [facility] bmi 2021-07-19 11:00:00 31.71 kg/m2 [facility] oximetry 2021-07-19 11:00:00 98 % [facility] respiratory rate 2021-07-19 11:00:00 16 /min Comm on [facility] blood pressure 2021-07-19 11:00:00 132 mm[Hg] Common [facility] - systolic [facility] blood pressure 2021-07-19 11:00:00 70 mm[Hg] [facility] diastolic [facility] Procedures This patient has no known procedures. Encounters Start End Encounter Admission Attending Care Care Encounter Source Date/Time Date/Time Type Type Clinicians Facility Department ID 2022-03-17 Outpatient NILSON Robert [facility] [id number] Common 14:09:02 Janneth [facility] 2022-02-06 Outpatient Robert, STLMLC STLMLC [id number] Common 08:26:02 Janneth [facility] 2021-08-16 Outpatient Robert, STLMLC STLMLC [id number] Common 15:09:04 Janneth [facility] 2021-07-27 Outpatient Robert, STLMLC STLMLC [id number] Common 14:36:53 Janneth [facility] 2022-02-07 2022-02-07 OFFICE STLMLC STLMLC [id number] Co mmon 00:00:00 00:00:00 VISIT EST Spir it PT LEVEL 3 [facility] 2022-02-06 2022-02-06 (TEL) STLMLC STLMLC [id number] Co mmon 00:00:00 00:00:00 [facility] 2021-07-19 2021-07-19 OFFICE STLMLC STLMLC [id number] Co mmon 00:00:00 00:00:00 VISIT EST Spir it PT LEVEL 3 [facility] Results This patient has no known results.
--- NOTE | 2023-02-27 08:29 | ER ---
Nurse's Notes [facility] Name: Gregory Pedraza Age: 38 yrs Sex: Male : 1985 Arrival Date: 02/27/2023 Time: 08:06 Bed 7 Private MD: Diagnosis: Tinnitus, bilateral Presentation: 02/27 08:17 Chief complaint: Patient states: his ears started ringing on Sunday02/25/23, and hasn't ap3 stopped. patient states he is now congested. Coronavirus screen: Client presents with at least one sign or symptom that may indicate coronavirus-19. Ebola Screen: No symptoms or risks identified at this time. Initial Sepsis Screen: Does the patient meet any 2 criteria? No. Patient's initial sepsis screen is negative. Does the patient have a suspected source of infection? No. Patient's initial sepsis screen is negative. Risk Assessment: Do you want to hurt yourself or someone else? Patient reports no desire to harm self or others. Onset of symptoms was February 25, 2023. 08:17 Method Of Arrival: Ambulatory ap3 08:17 Acuity: TAMERA 4 ap3 Triage Assessment: 08:19 General: Appears in no apparent distress. Behavior is calm, cooperative, appropriate ap3 for age. Pain: Denies pain. EENT: Reports ringing since 02/25/23. Neuro: Level of Consciousness is awake, alert, obeys commands, Oriented to person, place, time, situation. Cardiovascular: Patient's skin is warm and dry. Respiratory: Airway is patent Respiratory effort is even, unlabored, Respiratory pattern is regular, symmetrical. Historical: - Allergies: 08:18 PENICILLINS; ap3 - Home Meds: 08:18 None [Active]; ap3 - PMHx: 08:18 None; ap3 - Social history:: Smoking status: Patient reports the use of cigarette tobacco products, cigars, Patient uses street drugs, marijuana. Screenin:19 [facility] ED Fall Risk Assessment (Adult) History of falling in the last 3 months, ap3 including since admission No falls in past 3 months (0 pts). Abuse screen: Denies threats or abuse. Nutritional screening: No deficits noted. Tuberculosis screening: No symptoms or risk factors identified. Vital Signs: 08:17 BP 154 / 98; Pulse 67; Resp 17; Temp 98.5; Pulse Ox 99% ; Weight 88.45 kg; ap3 ED Course: 08:09 Patient arrived in ED. im 08:17 Anastacia Roach, SYLVESTER is Primary Nurse. ap3 08:18 Kevin Jackson DO is Attending Physician. ms3 08:18 Triage completed. ap3 08:20 Arm band placed on right wrist. ap3 08:20 Patient has correct armband on for positive identification. Bed in low position. Call ap3 light in reach. Pulse ox on. NIBP on. 08:29 Yamilet Nunez MD is Referral Physician. ms3 08:37 Provided Education on: discharge instructions. ap3 08:37 No provider procedures requiring assistance completed. Patient did not have IV access ap3 during this emergency room visit. Administered Medications: No medications were administered Medication: 08:37 VIS not applicable for this client. ap3 Outcome: 08:29 Discharge ordered by . ms3 08:37 Discharged to home ambulatory. ap3 08:37 Condition: good 08:37 Discharge instructions given to patient, Instructed on discharge instructions, follow up and referral plans. medication usage, Demonstrated understanding of instructions, follow-up care, medications, Prescriptions given X 1. 08:37 Patient left the ED. ap3 Signatures: Anastacia Roach RN RN ap3 Kevin Jackson DO DO ms3 Marry Matthews im
[2023-02-27 09:02] VITALS: BP 154/98; TEMP 98.5; O2SAT 99
--- NOTE | 2023-02-28 08:37 | EDPHYS ---
Physician Documentation [facility] Name: Gregory Pedraza Age: 38 yrs Sex: Male : 1985 Arrival Date: 02/27/2023 Time: 08:06 Bed 7 Private MD: ED Physician Kevin Jackson HPI: 02/27 11:35 This 38 yrs old Male presents to ER via Ambulatory with complaints of Ear ringing, ms3 Nasal Congestion, Sinus Congestion. 11:35 38-year-old male with no past medical history presents for bilateral tinnitus that ms3 began on Sunday. Patient denies otalgia. Patient denies nausea, vomiting, fevers, chills.. Historical: - Allergies: 08:18 PENICILLINS; ap3 - Home Meds: 08:18 None [Active]; ap3 - PMHx: 08:18 None; ap3 - Social history:: Smoking status: Patient reports the use of cigarette tobacco products, cigars, Patient uses street drugs, marijuana. ROS: 11:35 Constitutional: Negative for fever, and chills. ms3 11:35 Cardiovascular: Negative for chest pain, and palpitations. Respiratory: Negative for shortness of breath, cough, wheezing, and pleuritic chest pain, Abdomen/GI: Negative for abdominal pain, nausea, vomiting, diarrhea, and constipation, MS/Extremity: Negative for injury and deformity, Skin: Negative for injury, rash, and discoloration. 11:35 ENT: Positive for tinnitus. 11:35 All other systems are negative. Exam: 11:35 Constitutional: This is a well developed, well nourished patient who is awake, alert, ms3 and in no acute distress. Head/Face: Normocephalic, atraumatic. Eyes: Pupils equal round and reactive to light, extra-ocular motions intact. Lids and lashes normal. Conjunctiva and sclera are non-icteric and not injected. Periorbital areas with no swelling, redness, or edema. ENT: Nares patent. No nasal discharge, no septal abnormalities noted. Tympanic membranes are normal and external auditory canals are clear. Oropharynx with no redness, swelling, or masses, exudates, or evidence of obstruction, uvula midline. Mucous membranes moist. Neck: Trachea midline, no cervical lymphadenopathy. Supple, full range of motion without nuchal rigidity, or vertebral point tenderness. No Meningismus. Chest/axilla: Normal chest wall appearance and motion. Nontender with no deformity. Cardiovascular: Regular rate and rhythm with a normal S1 and S2. No gallops, murmurs, or rubs. Normal PMI, no JVD. No pulse deficits. Respiratory: Lungs have equal breath sounds bilaterally, clear to auscultation and percussion. No rales, rhonchi or wheezes noted. No increased work of breathing, no retractions or nasal flaring. Abdomen/GI: Soft, non-tender, with normal bowel sounds. No distension or tympany. No guarding or rebound. No evidence of tenderness throughout. Skin: Warm, dry with normal turgor. Normal color with no rashes, no lesions, and no evidence of cellulitis. Vital Signs: 08:17 BP 154 / 98; Pulse 67; Resp 17; Temp 98.5; Pulse Ox 99% ; Weight 88.45 kg; ap3 MDM: 08:27 Patient medically screened. ms3 11:35 Differential Diagnosis: Viral Syndrome Other Mnire's versus tendinitis. Data ms3 reviewed: vital signs, nurses notes, and as a result, I will discharge patient. I considered the following discharge prescriptions or medication management in the emergency department Prescription for Medrol Dosepak given. Counseling: I had a detailed discussion with the patient and/or guardian regarding the historical points, exam findings, and any diagnostic results supporting the discharge/admit diagnosis, the need for outpatient follow up, to return to the emergency department if symptoms worsen or persist or if there are any questions or concerns that arise at home. ED course: Discussed avoiding loud noises and white noise to help manage tinnitus. Patient to follow-up with Dr. Nunez in 2 to 3 days. Patient understands and agrees with plan. All questions were answered. Return precautions discussed include worsening symptoms, other concerns.. Administered Medications: No medications were administered Disposition: 17:41 Chart complete. ms3 Disposition Summary: 02/27/23 08:29 Discharge Ordered Location: Home ms3 Condition: Stable ms3 Diagnosis - Tinnitus, bilateral ms3 Followup: ms3 - With: Yamilet Nunez MD - When: 2 - 3 days - Reason: Recheck today's complaints Discharge Instructions: - Discharge Summary Sheet ms3 - Tinnitus ms3 Forms: - Medication Reconciliation Form ms3 - Thank You Letter ms3 - Antibiotic Education ms3 - Prescription Opioid Use ms3 - Patient Portal Instructions ms3 - Leadership Thank You Letter ms3 Prescriptions: - Medrol (John) 4 mg Oral Tablets, Dose Pack - take 1 tablet by ORAL route as directed - follow package instructions; 1 ms3 packet; Refills: 0, Product Selection Permitted Signatures: Anastacia Roach RN RN ap3 Kevin Jackson DO DO ms3
== END 2023-02-27 08:37 | disposition home or self-care (01) ==
LOC: ER 08:06
DX: H93.13 Tinnitus, bilateral (principal)

== ENCOUNTER 2023-04-09 06:56 | Emergency (ER) | payer SELFPAY ==
--- OUTSIDE RECORDS SUMMARY | 2023-04-09 06:59 | XMS REPORT | Continuity of Care Document ---
:1985 Author Organization [facility] t Address [address] [place] [address] [address] [place] [address] Care Team Providers Name Role Phone RobertKavya navai Attending Clinician Unavailable Payers Payer Name Policy Type Policy Number Effective Date Expiration Date [place] [id number] [facility] Blue Cross Blue 6 [id number] 2018 [facility] 00:00:00 [facility] Problems Condition Condition Condition Status Onset Resolution Last Treating Co mments Source Name Details Category Date Date Treatment Clinician Date [id number] Marijuana Problem Active Comm on abuse [facility] Allergies, Adverse Reactions, Alerts Allergy Allergy Status Severity Reaction(s) Onset Inactive Treating Comm ents Source Name Type Date Date Clinician penicill penicill Active Unknown Commo n in V in V [facility] Social History Social Habit Start Date Stop Date Quantity Comments Source History of Tobacco Use Co mmon [facility] Sex Assigned At Com mon [facility] Smoking Status Start Date Stop Date Source Former Smoker 2022-02-06 00:00:00 2022-02-06 00:00:00 [facility] Medications Ordered Filled Start Stop Current [...] Comments Source height 2022-02-07 08:20:00 70 [in_i] [facility] weight 2022-02-07 08:20:00 215 [lb_av] [facility] bmi 2022-02-07 08:20:00 30.85 kg/m2 [facility] blood pressure 2022-02-07 08:20:00 135 mm[Hg] [facility] - systolic [facility] blood pressure 2022-02-07 08:20:00 83 mm[Hg] Common [facility] - diastolic [facility] height 2021-07-19 11:00:00 70 [in_i] [facility] weight 2021-07-19 11:00:00 221.0 [lb_av] [facility] temperature 2021-07-19 11:00:00 97.9 [degF] [facility] bmi 2021-07-19 11:00:00 31.71 kg/m2 [facility] oximetry 2021-07-19 11:00:00 98 % [facility] respiratory rate 2021-07-19 11:00:00 16 /min Comm on [facility] blood pressure 2021-07-19 11:00:00 132 mm[Hg] Common [facility] - systolic [facility] blood pressure 2021-07-19 11:00:00 70 mm[Hg] [facility] diastolic [facility] Procedures This patient has no known procedures. Encounters Start End Encounter Admission Attending Care Care Encounter Source Date/Time Date/Time Type Type Clinicians Facility Department ID 2022-03-17 Outpatient Robert, STLMLC STLMLC [id number] Common 14:09:02 Janneth [facility] 2022-02-06 Outpatient Robert, STLMLC STLMLC [id number] Common 08:26:02 Janneth [facility] 2021-08-16 Outpatient Robert, STLMLC STLMLC [id number] Common 15:09:04 Janneth [facility] 2021-07-27 Outpatient Robert, STLMLC STLMLC [id number] Common 14:36:53 Janneth [facility] 2022-02-07 2022-02-07 OFFICE STLMLC STLMLC [id number] Co mmon 00:00:00 00:00:00 VISIT EST Spir it PT LEVEL 3 [facility] 2022-02-06 2022-02-06 (TEL) STLMLC STLMLC [id number] Co mmon 00:00:00 00:00:00 [facility] 2021-07-19 2021-07-19 OFFICE STLMLC STLMLC [id number] Co mmon 00:00:00 00:00:00 VISIT EST Spir it PT LEVEL 3 [facility] Results This patient has no known results.
[2023-04-09 07:40] LABS: Urine Bilirubin NEGATIVE (Negative); Urine Blood Negative (Negative); Urine Clarity Clear (Clear); Urine Color Colorless (Yellow); Urine Glucose NEGATIVE (Negative); Urine Protein NEGATIVE (Negative); Urine Urobilinogen Normal (Normal); Urine pH 5.5 (5.0-7.0)
--- NOTE | 2023-04-09 08:04 | RAD REPORT ---
EXAM DESCRIPTION: US - Scrotum Testicles - 04/09/2023 7:39 am CLINICAL HISTORY: left testicular pain Pain and swelling COMPARISON: No comparisons FINDINGS: The right testicle 4.2 x 3.0 x 2.1 cm. No intratesticular masses or evidence of testicular torsion. The left testicle 4.3 x 2.8 x 2.0 cm. No intratesticular masses or evidence of testicular torsion. Both epididymides are normal in size and appearance. No pathologic fluid collections. Punctate bilateral microlithiasis. IMPRESSION: No evidence of testicular mass or testicular torsion. Punctate bilateral microlithiasis.
--- NOTE | 2023-04-09 08:36 | ER ---
Nurse's Notes [facility] Name: Gregory Pedraza Age: 38 yrs Sex: Male : 1985 Arrival Date: 04/09/2023 Time: 06:56 Bed 4 Private MD: Diagnosis: Left testicular pain Presentation: 04/09 07:19 Chief complaint: Patient states: left testicular pain intermittent X 3 weeks, worse iw last night. Coronavirus screen: At this time, the client does not indicate any symptoms associated with coronavirus-19. Ebola Screen: Patient negative for fever greater than or equal to 101.5 degrees Fahrenheit, and additional compatible Ebola Virus Disease symptoms Patient denies exposure to infectious person. Patient denies travel to an Ebola-affected area in the 21 days before illness onset. No symptoms or risks identified at this time. 07:19 Method Of Arrival: Ambulatory iw 07:19 Acuity: TAMERA 3 iw Historical: - Allergies: 07:20 PENICILLINS; iw - Immunization history:: Adult Immunizations up to date. - Family history:: not pertinent. - Social history:: Smoking status: Patient denies any tobacco usage or history of. - Hospitalizations: : No recent hospitalization is reported. Screenin:58 [facility] ED Fall Risk Assessment (Adult) History of falling in the last 3 months, ko1 including since admission No falls in past 3 months (0 pts) Confusion or Disorientation No (0 pts) Intoxicated or Sedated No (0 pts) Impaired Gait No (0 pts) Mobility Assist Device Used No (0 pt) Altered Elimination No (0 pt) Score/Fall Risk Level 0 - 2 = Low Risk Oriented to surroundings, Maintained a safe environment, Educated pt \T\ family on fall prevention, incl call for assistance when getting out of bed, Assessed \T\ reinforced patient's understanding of fall precautions, Provided non-skid footwear, Hourly rounding (assess needs \T\ fall precautionary measures) done, Used ambulatory aids as needed (educated on \T\ assisted with), Used gait belt as appropriate. Abuse screen: Denies threats or abuse. Denies injuries from another. Nutritional screening: No deficits noted. Tuberculosis screening: No symptoms or risk factors identified. Assessment: 07:58 General: Appears in no apparent distress. uncomfortable, Behavior is calm, cooperative, ko1 appropriate for age. Pain: Complains of pain in testicles, left more than right. Neuro: No deficits noted. Cardiovascular: No deficits noted. Respiratory: No deficits noted. GI: No deficits noted. : Reports pain testicle. EENT: No deficits noted. Derm: No deficits noted. Musculoskeletal: No deficits noted. Vital Signs: 08:01 BP 118 / 86; Pulse 58; Resp 18; Temp 98; Pulse Ox 99% ; ko1 ED Course: 06:59 Patient arrived in ED. mg5 07:02 Suman Taylor MD is Attending Physician. rn 07:20 Triage completed. iw 07:41 Scrotum Testicles In Process Unspecified. EDMS 07:58 Sofi Valera, RN is Primary Nurse. ko1 07:58 Patient has correct armband on for positive identification. Bed in low position. Call ko1 light in reach. Side rails up X 1. Provided Education on: na. Pulse ox on. NIBP on. Door closed. Noise minimized. Warm blanket given. 07:58 No provider procedures requiring assistance completed. Patient did not have IV access ko1 during this emergency room visit. 08:34 Sid Cam MD is Referral Physician. rn Administered Medications: No medications were administered Medication: 07:58 VIS not applicable for this client. ko1 Outcome: 08:35 Discharge ordered by . rn 08:49 Discharged to home ambulatory, kc6 08:49 Condition: stable 08:49 Discharge instructions given to patient, Instructed on discharge instructions, follow up and referral plans. medication usage, Demonstrated understanding of instructions, follow-up care, medications, Prescriptions given X 2, 08:49 Patient left the ED. kc6 Signatures: Dispatcher [employer] EDMS Jyotsna Hamilton, SYLVESTER PHAN Suman Taylor MD MD rn Campbell, Kaitlyn, RN RN kc6 Sofi Valera, RN RN ko1 Rocío Steve mg5
--- NOTE | 2023-04-09 08:36 | EDPHYS ---
Physician Documentation [facility] Name: Gregory Pedraza Age: 38 yrs Sex: Male : 1985 Arrival Date: 04/09/2023 Time: 06:56 Bed 4 Private MD: ED Physician Suman Taylor HPI: 04/09 07:29 This 38 yrs old Male presents to ER via Ambulatory with complaints of Testicular Pain. rn 07:29 The patient presents with scrotal pain, of the left side, without swelling, without rn erythema, tenderness. Onset: The symptoms/episode began/occurred 3 week(s) ago. Modifying factors: The symptoms are alleviated by Elevation left testicle, the symptoms are aggravated by movement, pressure. Associated signs and symptoms: Pertinent negatives: abdominal pain, fever, hematuria, vomiting. Severity of symptoms: At their worst the symptoms were moderate, in the emergency department the symptoms are unchanged. The patient has not experienced similar symptoms in the past. The patient has not recently seen a physician. Patient reports left testicular pain for 3 weeks, worse since last night and became more constant. No trauma. No fever. No hematuria. No significant swelling.. Historical: - Allergies: 07:20 PENICILLINS; iw - Immunization history:: Adult Immunizations up to date. - Family history:: not pertinent. - Social history:: Smoking status: Patient denies any tobacco usage or history of. - Hospitalizations: : No recent hospitalization is reported. ROS: 07:29 Constitutional: Negative for fever, chills, and weight loss, Cardiovascular: Negative rn for chest pain, palpitations, and edema, Respiratory: Negative for shortness of breath, cough, wheezing, and pleuritic chest pain, Abdomen/GI: Negative for abdominal pain, nausea, vomiting, diarrhea, and constipation, : Positive for left testicular pain MS/Extremity: Negative for injury and deformity, Skin: Negative for injury, rash, and discoloration, Neuro: Negative for headache, weakness, numbness, tingling, and seizure, Exam: 07:29 Constitutional: This is a well developed, well nourished patient who is awake, alert, rn and in no acute distress. Abdomen/GI: Soft, non-tender Male : Mild left testicular tenderness, no significant swelling, no erythema or warmth. Normal lie of testicle, no hernia Vital Signs: 08:01 BP 118 / 86; Pulse 58; Resp 18; Temp 98; Pulse Ox 99% ; ko1 MDM: 07:02 Patient medically screened. rn 08:33 Differential diagnosis: urethritis, Epididymitis, testicular torsion, varicocele, rn hydrocele, nonspecific pain, mass. Data reviewed: vital signs, nurses notes, lab test result(s), radiologic studies, ultrasound, and as a result, I will discharge patient. Counseling: I had a detailed discussion with the patient and/or guardian regarding the historical points, exam findings, and any diagnostic results supporting the discharge/admit diagnosis, lab results, radiology results, the need for outpatient follow up, to return to the emergency department if symptoms worsen or persist or if there are any questions or concerns that arise at home. Special discussion: I discussed with the patient/guardian in detail that at this point there is no indication for admission to the hospital. It is understood, however, that if the symptoms persist or worsen the patient needs to return immediately for re-evaluation. Based on the history and exam findings, there is no indication for further emergent testing or inpatient evaluation. I discussed with the patient/guardian the need to see the urologist for further evaluation of the symptoms. 08:33 ED course: I have personally reviewed all of the results, including but not limited to rn urine test and imaging deemed necessary to safely discharge this patient at this time. All results given to and printed out for patient. I personally went over all the results with the patient and answered all questions. Patient will follow-up with PCP and or specialist as discussed. Return precautions given and understood.. 04/09 07:09 Order name: Urinalysis w/ reflexes; Complete Time: 07:42 rn 04/09 07:09 Order name: US Scrotum Testicles; Complete Time: 08:29 rn Administered Medications: No medications were administered Disposition Summary: 04/09/23 08:35 Discharge Ordered Notes: Location: Home rn Problem: new rn Symptoms: have improved rn Condition: Stable rn Diagnosis - Left testicular pain rn Followup: rn - With: Sid Cam MD - When: As needed - Reason: Recheck today's complaints, Re-evaluation by your physician Discharge Instructions: - Discharge Summary Sheet rn - Testicular Self-Exam rn Forms: - Medication Reconciliation Form rn - Thank You Letter rn - Antibiotic home health rn - Prescription Opioid Use rn - Patient Portal Instructions rn - Leadership Thank You Letter rn Prescriptions: - Cipro 500 mg Oral Tablet - take 1 tablet ORAL route every 12 hours for 10 days; 20 tablet; Refills: 0, rn Product Selection Permitted - Tramadol 50 mg Oral tablet - take 1 tablet ORAL route every 8-12 hours as needed; 12 tablet; Refills: 0, rn Product Selection Permitted Signatures: Dispatcher [employer] Jyotsna Herbert RN RN iw Nieto, Roman, MD MD rn Oliver, Kathy, RN RN ko1
[2023-04-09 09:11] VITALS: BP 118/86; TEMP 98; O2SAT 99
== END 2023-04-09 08:49 | disposition home or self-care (01) ==
LOC: ER 06:56
DX: N50.812 Left testicular pain (principal)
CPT/HCPCS: 76870; 81003; 99283

== ENCOUNTER 2024-05-21 12:22 | Emergency (ER) | payer SELFPAY ==
--- OUTSIDE RECORDS SUMMARY | 2024-05-21 12:25 | XMS REPORT | Continuity of Care Document ---
Author Name Unknown Address [address] [facility] [address] [place] [address] [facility] thconnect Address [address] [facility]. [address] [place] [address] Care Team Providers Care Remnants Cutter Name Role Phone PCP, PATIENT DOES NOT HAVE A Primary Care Physic nikko Unavailable Janneth Robert Attending Clinician Unavailable CRISTIAN ADAMS Attending Clinician Unavailable CRISTIAN ADAMS Attending Clinician Unavailable Matti Barnhart MD Attending Clinician [phone] MATTI BARNHART Attending Clinician Unavailable CRISTIAN ADAMS Admitting Clinician Unavailable MATTI BARNHART Admitting Clinician Unavailable Payers Payer Name Policy Type Policy Number Effective Date Expirati on Date Source [facility] [id number] 2018 00:00:00 [place] [id number] [place] [address] [id number] 2018 00:00:00 [facility] Problems Condition Name Condition Details Condition Category Status Onset Date Resolution Date Last Treatment Date Treating Clinician Comments Source [id number] Marijuana abuse Problem Active [facility] Allergies, Adverse Reactions, Alerts Allergy Name Allergy Type Status Severity Reaction(s) Onset Date Inactive Date Treating Clinician Comments Source Penicill in Drug Allergy Active Hives 2022-07 00:00: 00 [facility] PENICILL IN DRUG INGREDI Active High Hives 2022-07 00:00: 00 [facility] penicill in V penicill in V Active Unknown [facility] NO KNOWN ALLERGIE S Drug Class Active [facility] Social History Social Habit Start Date Stop Date Quantity Comments Source History of Tobacco Use [facility] Sexual orientation U [facility] Sex Assigned At 1985 00:00:00 1985 00:00:00 [facility] Smoking Status Start Date Stop Date Source Tobacco smoking consumption unknown [facility] Former Smoker 2022-02-06 00:00:00 2022-02-06 00:00:00 [facility] Medications Ordered Medication Name Filled Medication Name Start Date Stop Date Current Medication? Ordering Clinician Indication Dosage Frequency Signature (SIG) Comments Components Source NaCl 0.9% (NS) bolus infusion 500 mL 07-20 18:45: 00 07-21 06:44 :00 No 500mL at 999 mL/hr, 500 mL, IV Infusion, ONCE, 1 dose, On Sun07/20/23 at 1245, LILI [facility] tamsulosin (FLOMAX) 0.4 mg 24 hr capsule 2022-07 00:00: 00 Yes [id number] .4mg Take 1 capsule by mouth in the morning. [facility] ketorolac 10 mg tablet 2022-07 00:00: 00 Yes [id number] 10mg Take 1 tablet by mouth every 6 (six) hours as needed for Pain (scale 1-3). [facility] Ibuprofen 800 MG Ibuprofen 800 MG No TID Ibuprofen 800 MG Ibuprofen 800 MG Ibuprofen 800 MG No TID Ibuprofen 800 MG hydrOXYzine HCl 25 MG hydrOXYzine HCl 25 MG No 1{table t_at_be dtime_a s_neede d} QD hydrOXYzin e HCl 25 MG Ibuprofen 800 MG Ibuprofen 800 MG No TID Ibuprofen 800 MG hydrOXYzine HCl 25 MG hydrOXYzine HCl 25 MG No 1{table t_at_be dtime_a s_neede d} QD hydrOXYzin e HCl 25 MG Vital Signs Vital Name Observation Time Observation Value Comments S velma Systolic blood pressure 2023-07-20 17:34:00 135 mm[Hg] [place] [facility] Diastolic blood pressure 2023-07-20 17:34:00 93 mm[Hg] [facility] Heart rate 2023-07-20 17:34:00 82 /min Un[facility] Body temperature 2023-07-20 17:34:00 36.72 Marta [facility] Respiratory rate 2023-07-20 17:34:00 16 /min [facility] Body height 2023-07-20 17:34:00 175.3 cm [facility] Body weight 2023-07-20 17:34:00 86.183 kg [facility] BMI 2023-07-20 17:34:00 28.06 kg/m2 [facility] Oxygen saturation in Arterial blood by Pulse oximetry 2023-07-20 17:34:00 99 /min [facility] Systolic blood pressure 2023-05-02 18:02:00 143 mm[Hg] [facility] Diastolic blood pressure 2023-05-02 18:02:00 90 mm[Hg] [facility] Heart rate 2023-05-02 18:02:00 66 /min [facility] Respiratory rate 2023-05-02 18:02:00 16 /min [facility] Oxygen saturation in Arterial blood by Pulse oximetry 2023-05-02 18:02:00 99 /min [facility] Body temperature 2023-05-02 15:00:00 36.56 Marta [facility] Body height 2023-05-02 15:00:00 172.7 cm [facility] Body weight 2023-05-02 15:00:00 86.183 kg [facility] BMI 2023-05-02 15:00:00 28.89 kg/m2 [facility] height 2022-02-07 08:20:00 70 [in_i] Commo n [facility] weight 2022-02-07 08:20:00 215 [lb_av] Comm on [facility] bmi 2022-02-07 08:20:00 30.85 kg/m2 Comm on [facility] blood pressure systolic 2022-02-07 08:20:00 135 mm[Hg] [facility] blood pressure diastolic 2022-02-07 08:20:00 83 mm[Hg] [facility] height 2021-07-19 11:00:00 70 [in_i] Commo n [facility] weight 2021-07-19 11:00:00 221.0 [lb_av] Co mmon [facility] temperature 2021-07-19 11:00:00 97.9 [degF] Com mon [facility] bmi 2021-07-19 11:00:00 31.71 kg/m2 Comm on [facility] oximetry 2021-07-19 11:00:00 98 % Commo n [facility] respiratory rate 2021-07-19 11:00:00 16 /min [facility] blood pressure systolic 2021-07-19 11:00:00 132 mm[Hg] [facility] blood pressure diastolic 2021-07-19 11:00:00 70 mm[Hg] [facility] Procedures Procedure Date / Time Performed Performing Clinicia n Source POCT GLUCOSE (AUTOMATED) 2023-07-20 17:37:00 Doctor Unassigned, [address] [facility] CONSENT/REFUSAL FOR DIAGNOSIS AND TREATMENT 2023-07-20 17:21:36 Doctor Unassigned, [address] [facility] URINALYSIS 2023-05-02 16:32:00 Matti Barnhart [facility] CT ABDOMEN PELVIS WO CONTRAST 2023-05-02 16:23:56 Matti Barnhart [facility] US SCROTUM AND CONTENTS 2023-05-02 16:09:00 Matti Barnhart [facility] NOTICE OF PRIVACY PRACTICES 2023-05-02 14:50:59 Doctor Unassigned, [address] [facility] CONSENT/REFUSAL FOR DIAGNOSIS AND TREATMENT 2023-05-02 14:50:12 Doctor Unassigned, [address] [facility] Encounters Start Date/Time End Date/Time Encounter Type Admission Type Attending Clinicians Care Facility Care Department Encounter ID Source 2023-04-09 09:31:01 Outpatient Janneth Robert [facility] [id number] [facility] 2022-03-17 14:09:02 Outpatient Janneth Robert STLOUIE [facility] [id number] [facility] 2022-02-06 08:26:02 Outpatient Janneth Robert [facility] [id number] [facility] 2021-08-16 15:09:04 Outpatient Janneth Robert [facility] [id number] [facility] 2021-07-27 14:36:53 Outpatient Janneth Robert [facility] [id number] [facility] 2023-07-20 11:38:00 2023-07-20 12:19:00 Emergency X CRISTIAN ADAMS TIMOTHY RUST ERT [id number] [facility] 2023-07-20 11:38:00 2023-07-20 12:19:00 Emergency Cristian Adams [facility] [id number] [facility] 2023-05-02 10:03:00 2023-05-02 13:07:00 Emergency Matti Barnhart [facility] [id number] [facility] 2023-05-02 10:03:00 2023-05-02 13:07:00 Emergency X MATTI BARNHART RUST ERT [id number] [facility] 2022-02-07 00:00:00 2022-02-07 00:00:00 OFFICE VISIT EST [facility] [id number] [facility] 2022-02-06 00:00:00 2022-02-06 00:00:00 (TEL) [facility] [id number] [facility] 2021-07-19 00:00:00 2021-07-19 00:00:00 OFFICE VISIT EST PT LEVEL 3 [facility] [id number] [facility] Results Test Description Test Time Test Comments Results Result Co mments Source [facility] Notes Date/Time Note Provider Source 2023-07-20 12:14:00 Went to the lobby to move patient to a room, patient not in lobby. Registration informed me that they were not able to locate patient. [facility] 2023-07-20 11:59:26 [facility] unable to find pt[facility] Dannielle Lora RN [facility] 2023-07-20 11:37:38 BGL in triage 127. [facility] 2023-07-20 11:31:56 Patient states "I was at work and I was looking at my paper work and I couldn't see straight and I kind of felt dizzy. I skipped breakfast this morning and I went and ate something before I came over here and it seems to have gotten better. Patient states that during episode he felt hot, dizzy and was sweating and his vision was blurred, has resolved after eating. [facility]
[2024-05-21 13:36] LABS: Absolute Eosinophils 0.1 K/uL (0-0.5); Absolute Lymphocytes (CBC) 2.1 K/uL (0.7-4.9); Absolute Monocytes 0.4 K/uL (0.1-1.3); Basophils % 0.4 % (0-1.3); Eosinophils % 1.3 % (0-4.4); Hemoglobin 14.3 g/dL (13.6-17.9); Lymphocytes % 31.4 % (15.3-44.8); MCHC 33.3 g/dL (32.0-36.0); MCV 90.1 fL (80-100); Neutrophils % 60.9 % (41.7-73.7); Platelets 306 thou/uL (152-406); RBC Red Blood Cell Count 4.78 M/uL (4.33-5.43); Red Cell Distribution Width 12.5 % (12.1-15.2)
[2024-05-21 13:42] LABS: PT Prothrombin Time 11.1 SECONDS (9.4-12.5); PTT, Activated Partial Thromb 32.3 SECONDS (24.3-36.9); Protime INR 0.99
[2024-05-21 13:55] LABS: Albumin 3.9 g/dL (3.4-5.0); Anion Gap 11.2 mEq/L (5.0-15.0); Bilirubin Total 0.3 mg/dL (0.2-1.0); Globulin 3.9 g/dL (2.3-3.5); Potassium 4.2 mEq/L (3.5-5.1); Protein, Total 7.8 g/dL (6.4-8.2)
--- NOTE | 2024-05-21 14:16 | RAD REPORT ---
EXAMINATION: CT ABDOMEN AND PELVIS WITH CONTRAST CLINICAL INDICATION: Abdominal pain. Hematochezia TECHNIQUE: CT abdomen and pelvis was performed, after the administration of 100 cc Isovue-300.. Sagit danielle and coronal reconstructions were obtained. One or more of the following dose reduction techniques were used: Automated exposure control, adjustment of the mA and kV according to patient si ze, and iterative reconstruction. Unless otherwise specified, incidental findings do not require dedicated imaging follow-up. [id number]. Oral contrast was not given which limits evaluation of bowel and appendix. COMPARISON: none FINDINGS: Liver, spleen, pancreas, and adrenals appear unremarkable Tiny bilateral renal calculi. No hydronephrosis. Tiny renal cysts. No evidence of diverticulitis. Moderate amount stool within the colon Normal appendix. : IMPRESSION: Tiny nonobstructing bilateral renal calculi Moderate stool burden
[2024-05-21] MEDS ORDERED: MAGNESIUM CITRATE 300 ML BOT ONE (15:54)
--- NOTE | 2024-05-21 15:54 | ER ---
Nurse's Notes [facility] Name: Gregory Pedraza Age: 39 yrs Sex: Male : 1985 Arrival Date: 05/21/2024 Time: 12:22 Bed 9 Private MD: Diagnosis: Constipation, unspecified;Abdominal pain, unspecified Presentation: 05/21 13:01 Chief complaint: Patient states: L sided abdominal pain for 2 weeks. Noticed bright red ll1 blood in hard stool yesterday and today. No known fever. Coronavirus screen: Client denies travel out of the [place] in the last 14 days. At this time, the client does not indicate any symptoms associated with coronavirus-19. Ebola Screen: Patient denies travel to an Ebola-affected area in the 21 days before illness onset. Initial Sepsis Screen: Does the patient meet any 2 criteria? No. Patient's initial sepsis screen is negative. Does the patient have a suspected source of infection? No. Patient's initial sepsis screen is negative. Risk Assessment: Do you want to hurt yourself or someone else? Patient reports no desire to harm self or others. Onset of symptoms was May 07, 2024. 13:01 Method Of Arrival: Ambulatory ll1 13:01 Acuity: TAMERA 3 ll1 Triage Assessment: 13:01 General: Appears uncomfortable, Behavior is calm, cooperative, appropriate for age. ll1 Pain: Complains of pain in L abdomen Quality of pain is described as aching. GI: Reports upper abdominal pain, constipation, rectal bleeding. Historical: - Allergies: 13: PENICILLINS; ll1 - Home Meds: 13: None [Active]; ll1 - PMHx: 13: None; ll1 - PSHx: 13:01 None; ll1 - Immunization history:: Adult Immunizations up to date. - Social history:: Smoking status: Reported history of juuling and/or vaping. - Family history:: not pertinent. - Hospitalizations: : No recent hospitalization is reported. Screenin:03 [facility] ED Fall Risk Assessment (Adult) History of falling in the last 3 months, ll1 including since admission No falls in past 3 months (0 pts) Confusion or Disorientation No (0 pts) Intoxicated or Sedated No (0 pts) Impaired Gait No (0 pts) Mobility Assist Device Used No (0 pt) Altered Elimination No (0 pt) Score/Fall Risk Level 0 - 2 = Low Risk Maintained a safe environment, Hourly rounding (assess needs \T\ fall precautionary measures) done. Abuse screen: Denies threats or abuse. Nutritional screening: No deficits noted. Tuberculosis screening: No symptoms or risk factors identified. Assessment: 16:03 Reassessment: No changes from previously documented assessment. Patient and/or family ll1 updated on plan of care and expected duration. Pain level reassessed. Patient is alert, oriented x 3, equal unlabored respirations, skin warm/dry/pink. Vital Signs: 13:01 BP 143 / 98; Pulse 83; Resp 17; Temp 97.6; Pulse Ox 97% ; Weight 86.18 kg; Height 5 ft. ll1 9 in. ; Pain 3/10; 16:02 BP 139 / 104; Pulse 71; Resp 16; Pulse Ox 97% on R/A; Pain 2/10; ll1 13:01 Body Mass Index 28.06 (86.18 kg, 175.26 cm) ll1 13:01 Pain Scale: Adult ll1 16:02 Pain Scale: Adult ll1 ED Course: 12:24 Patient arrived in ED. mr 12:28 Suman Taylor MD is Attending Physician. rn 13:03 Triage completed. ll1 13:46 CT Abd/Pelvis - IV Contrast Only In Process Unspecified. EDMS 14:30 Inserted saline lock: 20 gauge in right antecubital area, using aseptic technique. ll1 Blood collected. Flushed with 10 mL NS. 15:23 Arm band placed on Patient placed in an exam room, on a stretcher. 16:03 IV discontinued, intact, bleeding controlled, No redness/swelling at site. Pressure ll1 dressing applied. 16:04 No provider procedures requiring assistance completed. ll1 Administered Medications: 16:02 Drug: Magnesium Citrate PO Liquid 300 ml PO once Route: PO; ll1 16:02 Follow up: Response: No adverse reaction ll1 Outcome: 15:53 Discharge ordered by . rn 16:07 Patient left the ED. ll1 Signatures: Dispatcher [employer] EDLA Lizeth Acevedo, Reg Reg mr Suman Taylor MD MD rn Blanchard, Shelby, RN RN ss Lewis, Lynsay, RN RN ll1
--- NOTE | 2024-05-21 15:54 | EDPHYS ---
Physician Documentation [facility] Name: Gregory Pedraza Age: 39 yrs Sex: Male : 1985 Arrival Date: 05/21/2024 Time: 12:22 Bed 9 Private MD: ED Physician Suman Taylor HPI: 05/21 15:39 This 39 yrs old Male presents to ER via Ambulatory with complaints of Abdominal Pain, rn Bloody Stools. 15:39 The patient presents with abdominal pain in the upper abdomen. rn 15:39 Onset: The symptoms/episode began/occurred 2 week(s) ago. The symptoms do not radiate. rn Associated signs and symptoms: Pertinent positives: constipation, Pertinent negatives: fever, headache, vomiting. 15:50 Modifying factors: The symptoms are alleviated by nothing, the symptoms are aggravated rn by nothing. Severity of pain: At its worst the pain was mild in the emergency department the pain is unchanged. The patient has experienced similar episodes in the past. Patient reports left upper abdominal pain associated with constipation for 2 weeks in the last couple days has noticed a few drops of bright red blood with bowel movements. No fever or chills. No history of inflammatory bowel disease. Historical: - Allergies: 13:01 PENICILLINS; ll1 - Home Meds: 13:01 None [Active]; ll1 - PMHx: 13:01 None; ll1 - PSHx: 13:01 None; ll1 - Immunization history:: Adult Immunizations up to date. - Social history:: Smoking status: Reported history of juuling and/or vaping. - Family history:: not pertinent. - Hospitalizations: : No recent hospitalization is reported. ROS: 15:50 Constitutional: Negative for fever, chills, and weight loss, Cardiovascular: Negative rn for chest pain, palpitations, and edema, Respiratory: Negative for shortness of breath, cough, wheezing, and pleuritic chest pain, Abdomen/GI: Positive for abdominal pain and constipation MS/Extremity: Negative for injury and deformity, Skin: Negative for injury, rash, and discoloration, Neuro: Negative for headache, weakness, numbness, tingling, and seizure, Exam: 15:50 Constitutional: This is a well developed, well nourished patient who is awake, alert, rn and in no acute distress. Cardiovascular: Regular rate and rhythm. No pulse deficits. Abdomen/GI: Soft, nontender Vital Signs: 13:01 BP 143 / 98; Pulse 83; Resp 17; Temp 97.6; Pulse Ox 97% ; Weight 86.18 kg; Height 5 ft. ll1 9 in. ; Pain 3/10; 16:02 BP 139 / 104; Pulse 71; Resp 16; Pulse Ox 97% on R/A; Pain 2/10; ll1 13:01 Body Mass Index 28.06 (86.18 kg, 175.26 cm) ll1 13:01 Pain Scale: Adult ll1 16:02 Pain Scale: Adult ll1 MDM: 12:28 Medical Screening Exam initiated rn 15:50 Differential diagnosis: bowel obstruction, Constipation, colitis, diverticulitis. Data rn reviewed: vital signs, nurses notes, lab test result(s), radiologic studies, CT scan, and as a result, I will discharge patient. Counseling: I had a detailed discussion with the patient and/or guardian regarding the historical points, exam findings, and any diagnostic results supporting the discharge/admit diagnosis, lab results, radiology results, the need for outpatient follow up, to return to the emergency department if symptoms worsen or persist or if there are any questions or concerns that arise at home. Special discussion: Based on the patient's Hx, exam, and Dx evaluation, there is no indication for emergent surgery or inpatient Tx. It is understood by the patient/guardian that if the Sx's persist or worsen they need to return immediately for re-evaluation. I discussed with the patient/guardian in detail that at this point there is no indication for admission to the hospital. It is understood, however, that if the symptoms persist or worsen the patient needs to return immediately for re-evaluation. ED course: No acute findings and workup. Shows moderate stool burden and constipation. Painless rectal bleeding with bowel movements likely internal hemorrhoids due to constipation. Will give magnesium citrate and discharged with bowel regimen and return precautions and GI follow-up.. 05/21 12: Order name: CBC with Diff; Complete Time: 15: rn 05/21 12: Order name: CMP; Complete Time: 15: rn 05/21 12:29 Order name: Lipase; Complete Time: 15: rn 05/21 12: Order name: PT-INR; Complete Time: 15:27 rn 05/21 12:29 Order name: Ptt, Activated; Complete Time: 15:27 rn 05/21 12:29 Order name: CT Abd/Pelvis - IV Contrast Only; Complete Time: 15:27 rn 05/21 12:29 Order name: IV Saline Lock; Complete Time: 13:46 rn 05/21 12:29 Order name: Labs collected and sent; Complete Time: 13:46 rn Administered Medications: 16:02 Drug: Magnesium Citrate PO Liquid 300 ml PO once Route: PO; ll1 16:02 Follow up: Response: No adverse reaction ll1 Disposition Summary: 05/21/24 15:53 Discharge Ordered Notes: Location: Home rn Problem: an ongoing problem rn Symptoms: are unchanged rn Condition: Stable rn Diagnosis - Constipation, unspecified rn - Abdominal pain, unspecified rn Followup: rn - With: Private Physician - When: As needed - Reason: Recheck today's complaints, Re-evaluation by your physician Discharge Instructions: - Discharge Summary Sheet rn - Abdominal Pain, Adult rn - Constipation, Adult rn Forms: - Medication Reconciliation Form rn - Antibiotic [employer] systems - Prescription Opioid Use rn - Patient Portal Instructions rn - Leadership Thank You Letter rn Signatures: Dispatcher [employer] EDMS Suman Taylor MD MD rn Lewis, Lynsay, RN RN ll1 Corrections: (The following items were deleted from the chart) 12: 12:29 CBC+H.LAB.BRZ ordered. EDMS EDMS 12: 12:29 COMPREHENSIVE METABOLIC PANEL+C.LAB.BRZ ordered. EDMS EDMS 12: 12:29 LIPASE+C.LAB.BRZ ordered. EDMS EDMS 12: 12:29 PROTIME (+INR)+COAG.LAB.BRZ ordered. EDMS EDMS 12: 12:29 PTT, ACTIVATED+COAG.LAB.BRZ ordered. EDMS EDMS 12: 12:29 Abdomen Pelvis W Con+CT.RAD.BRZ ordered. EDMS EDMS
[2024-05-21 16:30] VITALS: TEMP 97.6; O2SAT 97
[2024-05-21 16:36] VITALS: BP 139/104
== END 2024-05-21 16:07 | disposition home or self-care (01) ==
LOC: ER 12:22
DX: K59.00 Constipation, unspecified (principal)
CPT/HCPCS: 36415; 74177; 80053; 83690; 85025; 85610; 85730; Q9967

== ENCOUNTER 2024-10-18 05:54 | Emergency (ER) | payer SELFPAY ==
--- OUTSIDE RECORDS SUMMARY | 2024-10-18 05:57 | XMS REPORT | Continuity of Care Document ---
Author Name Unknown Address [address] [facility] [address] [place] [address] [facility] Address [address] [facility] [place] [address] Care Team Providers Care Travel Coordinator Name Role Phone PCP, PATIENT DOES NOT HAVE A Primary Care Physic nikko Unavailable Janneth Robert Attending Clinician Unavailable CRISTIAN ADAMS Attending Clinician Unavailable CRISTIAN ADAMS Attending Clinician Unavailable Matti Barnhart MD Attending Clinician [phone] MATTI BARNHART Attending Clinician Unavailable CRISTIAN ADAMS Admitting Clinician Unavailable MATTI BARNHART Admitting Clinician Unavailable Payers Payer Name Policy Type Policy Number Effective Date Expirati on Date Source [facility] [id number] 2018 00:00:00 [place] [id number] [place] [address] [id number] 2018 00:00:00 [facility] Problems Condition Name Condition Details Condition Category Status Onset Date Resolution Date Last Treatment Date Treating Clinician Comments Source [id number] Marijuana abuse Problem Active [facility] Allergies, Adverse Reactions, Alerts Allergy Name Allergy Type Status Severity Reaction(s) Onset Date Inactive Date Treating Clinician Comments Source Penicill in Drug Allergy Active Hives 2022-07 00:00: 00 [facility] PENICILL IN DRUG INGREDI Active High Hives 2022-07 00:00: 00 [facility] penicill in V penicill in V Active Unknown [facility] NO KNOWN ALLERGIE S Drug Class Active [facility] Social History Social Habit Start Date Stop Date Quantity Comments Source History of Tobacco Use [facility] Sexual orientation [facility] Sex Assigned At 1985 00:00:00 1985 00:00:00 [facility] Smoking Status Start Date Stop Date Source Tobacco smoking consumption unknown [facility] Former Smoker 2022-02-06 00:00:00 2022-02-06 00:00:00 [facility] Medications Ordered Medication Name Filled Medication Name Start Date Stop Date Current Medication? Ordering Clinician Indication Dosage Frequency Signature (SIG) Comments Components Source NaCl 0.9% (NS) bolus infusion 500 mL 07-20 18:45: 00 07-21 06:44 :00 No 500mL at 999 mL/hr, 500 mL, IV Infusion, ONCE, 1 dose, On Sun07/20/23 at 1245, LILI [facility] tamsulosin (FLOMAX) 0.4 mg 24 hr capsule 2022-07 00:00: 00 Yes [id number] .4mg Take 1 capsule by mouth in the morning. [facility] ketorolac 10 mg tablet 2022-07 00:00: 00 Yes [id number] 10mg Take 1 tablet by mouth every 6 (six) hours as needed for Pain (scale 1-3). [facility] Ibuprofen 800 MG Ibuprofen 800 MG [...] Systolic blood pressure 2023-07-20 17:34:00 135 mm[Hg] [facility] Diastolic blood pressure 2023-07-20 17:34:00 93 mm[Hg] [facility] Heart rate 2023-07-20 17:34:00 82 /min [facility] Body temperature 2023-07-20 17:34:00 36.72 Marta [facility] Respiratory rate 2023-07-20 17:34:00 16 /min [facility] Body height 2023-07-20 17:34:00 175.3 cm [facility] Body weight 2023-07-20 17:34:00 86.183 kg [facility] BMI 2023-07-20 17:34:00 28.06 kg/m2 [facility] Oxygen saturation in Arterial blood by Pulse oximetry 2023-07-20 17:34:00 99 /min [facility] Systolic blood pressure 2023-05-02 18:02:00 143 mm[Hg] [facility] Diastolic blood pressure 2023-05-02 18:02:00 90 mm[Hg] [facility] Heart rate 2023-05-02 18:02:00 66 /min [facility] Respiratory rate 2023-05-02 18:02:00 16 /min [facility] Oxygen saturation in Arterial blood by Pulse oximetry 2023-05-02 18:02:00 99 /min [facility] Body temperature 2023-05-02 15:00:00 36.56 Marta [facility] Body height 2023-05-02 15:00:00 172.7 cm [facility] Body weight 2023-05-02 15:00:00 86.183 kg [facility] BMI 2023-05-02 15:00:00 28.89 kg/m2 [facility] height 2022-02-07 08:20:00 70 [in_i] [facility] weight 2022-02-07 08:20:00 215 [lb_av] Comm on [facility] bmi 2022-02-07 08:20:00 30.85 kg/m2 Comm [facility] blood pressure systolic 2022-02-07 08:20:00 135 mm[Hg] [facility] blood pressure diastolic 2022-02-07 08:20:00 83 mm[Hg] [facility] height 2021-07-19 11:00:00 70 [in_i] Commo n [facility] weight 2021-07-19 11:00:00 221.0 [lb_av] Co mmon [facility] temperature 2021-07-19 11:00:00 97.9 [degF] Com mon [facility] bmi 2021-07-19 11:00:00 31.71 kg/m2 Comm [facility] oximetry 2021-07-19 11:00:00 98 % Commo n [facility] respiratory rate 2021-07-19 11:00:00 16 /min [facility] blood pressure systolic 2021-07-19 11:00:00 132 mm[Hg] [facility] blood pressure diastolic 2021-07-19 11:00:00 70 mm[Hg] [facility] Procedures Procedure Date / Time Performed Performing Clinicia n Source POCT GLUCOSE (AUTOMATED) 2023-07-20 17:37:00 Doctor Unassigned, [facility] CONSENT/REFUSAL FOR DIAGNOSIS AND TREATMENT 2023-07-20 17:21:36 Doctor Unassigned, [facility] URINALYSIS 2023-05-02 16:32:00 Matti Barnhart [facility] CT ABDOMEN PELVIS WO CONTRAST 2023-05-02 16:23:56 Matti Barnhart [facility] US SCROTUM AND CONTENTS 2023-05-02 16:09:00 Matti Barnhart [facility] NOTICE OF PRIVACY PRACTICES 2023-05-02 14:50:59 Doctor Unassigned, [facility] CONSENT/REFUSAL FOR DIAGNOSIS AND TREATMENT 2023-05-02 14:50:12 Doctor Unassigned, [facility] Encounters Start Date/Time End Date/Time Encounter Type Admission Type Attending Clinicians Care Facility Care Department Encounter ID Source 2023-04-09 09:31:01 Outpatient Janneth Robert [facility] [id number] [facility] 2022-03-17 14:09:02 Outpatient Janneth Robert [facility] [id number] [facility] 2022-02-06 08:26:02 Outpatient Janneth Robert [facility] [id number] [facility] 2021-08-16 15:09:04 [facility] [id number] [facility] 2021-07-27 14:36:53 Outpatient Janneth Robert [facility] [id number] [facility] 2023-07-20 11:38:00 2023-07-20 12:19:00 Emergency X CRISTIAN ADAMS [email or web address] ERT [id number] [facility] 2023-07-20 11:38:00 2023-07-20 12:19:00 Emergency Cristian Adams [facility] [id number] [facility] 2023-05-02 10:03:00 2023-05-02 13:07:00 Emergency Matti Barnhart [facility] [id number] [facility] 2023-05-02 10:03:00 2023-05-02 13:07:00 Emergency X MATTI BARNHART [facility] [[email or web address]] ERT [id number] [facility] 2022-02-07 00:00:00 2022-02-07 00:00:00 OFFICE VISIT EST PT LEVEL 3 [facility] [id number] [facility] 2022-02-06 00:00:00 2022-02-06 00:00:00 (TEL) [facility] [id number] [facility] 2021-07-19 00:00:00 2021-07-19 00:00:00 OFFICE VISIT EST PT LEVEL 3 [facility] [id number] [facility] Results Test Description Test Time Test Comments Results Result Co mments Source [facility] Notes Date/Time Note Provider Source 2023-07-20 12:14:00 Went to the lobby to move patient to a room, patient not in lobby. Registration informed me that they were not able to locate patient. [facility] 2023-07-20 11:59:26 RCO unable to find pt. Lora RN [facility] 2023-07-20 11:37:38 BGL in triage 127. [facility] 2023-07-20 11:31:56 Patient states "I was [...] vision was blurred, has resolved after eating. [facility]
--- NOTE | 2024-10-18 06:19 | ER ---
Nurse's Notes [facility] Name: Gregory Pedraza Age: 39 yrs Sex: Male : 1985 Arrival Date: 10/18/2024 Time: 05:54 Bed 18 Private MD: Diagnosis: Other infective otitis externa, left ear Presentation: 10/18 06:03 Chief complaint: Patient states: left ear pain X3 days. Coronavirus screen: Client lg3 denies travel out of the [place] in the last 14 days. At this time, the client does not indicate any symptoms associated with coronavirus-19. Ebola Screen: No symptoms or risks identified at this time. Initial Sepsis Screen: Does the patient meet any 2 criteria? No. Patient's initial sepsis screen is negative. Does the patient have a suspected source of infection? No. Patient's initial sepsis screen is negative. Risk Assessment: Do you want to hurt yourself or someone else? Patient reports no desire to harm self or others. Onset of symptoms is unknown. 06:03 Method Of Arrival: Ambulatory lg3 06:03 Acuity: TAMERA 4 lg3 Triage Assessment: 06:04 General: Appears in no apparent distress. uncomfortable, Behavior is calm, cooperative. lg3 Pain: Complains of pain in left ear Pain radiates to face and neck. EENT: Reports decreased hearing pain in left ear. Neuro: No deficits noted. Varner Agitation-Sedation Scale (RASS): 0 - Alert and Calm Level of Consciousness is awake, alert, obeys commands, Oriented to person, place, time, situation. Cardiovascular: No deficits noted. Denies chest pain, shortness of breath, Capillary refill < 3 seconds Clubbing of nail beds is absent JVD is absent Patient's skin is warm and dry. Respiratory: No deficits noted. Airway is patent Respiratory effort is even, unlabored, Respiratory pattern is regular, symmetrical. GI: No deficits noted. No signs and/or symptoms were reported involving the gastrointestinal system. : No signs and/or symptoms were reported regarding the genitourinary system. Derm: No deficits noted. No signs and/or symptoms reported regarding the dermatologic system. Skin is intact, is healthy with good turgor, Skin is dry, Skin is normal, Skin temperature is warm. Musculoskeletal: No deficits noted. No signs and/or symptoms reported regarding the musculoskeletal system. Circulation, motion, and sensation intact. Range of motion: intact in all extremities. Historical: - Allergies: 06:04 PENICILLINS; lg3 - Home Meds: 06:04 None [Active]; lg3 - PMHx: 06:04 None; lg3 - PSHx: 06:04 None; lg3 - Immunization history:: Adult Immunizations up to date. - Infectious Disease History:: Denies. - Social history:: Smoking status: Patient denies any tobacco usage or history of. Patient uses alcohol, occasionally. - Family history:: not pertinent. Screenin:11 [facility] ED Fall Risk Assessment (Adult) History of falling in the last 3 months, kd3 including since admission No falls in past 3 months (0 pts) Confusion or Disorientation No (0 pts) Intoxicated or Sedated No (0 pts) Impaired Gait No (0 pts) Mobility Assist Device Used No (0 pt) Altered Elimination No (0 pt) Score/Fall Risk Level 0 - 2 = Low Risk Oriented to surroundings, Maintained a safe environment, Hourly rounding (assess needs \T\ fall precautionary measures) done. Abuse screen: Denies threats or abuse. Denies injuries from another. Nutritional screening: No deficits noted. Tuberculosis screening: No symptoms or risk factors identified. Assessment: 06:10 General: Appears in no apparent distress. uncomfortable, Behavior is calm, cooperative. kd3 Pain: Complains of pain in left ear Pain radiates to left jaw Pain currently is 8 out of 10 on a pain scale. Neuro: Level of Consciousness is awake, alert, obeys commands, Oriented to person, place, time, situation. Cardiovascular: Capillary refill < 3 seconds Patient's skin is warm and dry. Respiratory: Airway is patent Respiratory effort is even, unlabored, Respiratory pattern is regular, symmetrical. GI: No signs and/or symptoms were reported involving the gastrointestinal system. : No signs and/or symptoms were reported regarding the genitourinary system. EENT: Tympanic membrane reddened on left ear Reports pain in left ear. Derm: Skin is intact, is healthy with good turgor, Skin is pink, warm \T\ dry. normal. Musculoskeletal: No signs and/or symptoms reported regarding the musculoskeletal system. 06:30 Reassessment: discharge pending shot time. al5 Vital Signs: 06:03 BP 148 / 96; Pulse 81; Resp 16 S; Temp 98.3(O); Pulse Ox 99% on R/A; Weight 90.72 kg lg3 (R); Height 5 ft. 8 in. (R); Pain 9/10; 06:30 BP 138 / 97; Pulse 95; Resp 18; Pulse Ox 95% on R/A; al5 06:56 BP 132 / 81; Pulse 90; Resp 18; Pulse Ox 96% on R/A; al5 06:03 Body Mass Index 30.41 (90.72 kg, 172.72 cm) lg3 06:03 Pain Scale: Adult lg3 [place] Coma Score: 19:59 Eye Response: spontaneous(4). Motor Response: obeys commands(6). Verbal Response: sp4 oriented(5). Total: 15. ED Course: 05:55 Patient arrived in ED. jj6 06:01 Anastacia Washington RN is Primary Nurse. al5 06:01 Baron Bledsoe MD is Attending Physician. al5 06:04 Triage completed. lg3 06:10 Arm band placed on right wrist. Patient placed in the treatment room, in view of staff kd3 members, on pulse oximetry. 06:11 Patient has correct armband on for positive identification. Bed in low position. Call kd3 light in reach. Side rails up X 1. Provided Education on: plan of care. 06:11 No provider procedures requiring assistance completed. kd3 06:18 Yamilet Nunez MD is Referral Physician. sp4 06:56 Patient did not have IV access during this emergency room visit. al5 Administered Medications: 06:29 Drug: Rocephin (cefTRIAXone) IM 1 grams IM once Route: IM; Site: right gluteus; al5 06:56 Follow up: Response: No adverse reaction al5 06:29 Drug: Ketorolac IM 60 mg IM once Route: IM; Site: right gluteus; al5 06:56 Follow up: Response: No adverse reaction; Pain is decreased al5 06:29 Drug: Acetaminophen PO 500 mg PO once Route: PO; al5 06:56 Follow up: Response: No adverse reaction; Pain is decreased al5 Medication: 06:11 VIS not applicable for this client. kd3 Outcome: 06:19 Discharge ordered by . sp4 06:56 Discharged to home ambulatory, al5 06:56 Condition: good 06:56 Discharge instructions given to patient, Instructed on discharge instructions, follow up and referral plans. medication usage, Demonstrated understanding of instructions, follow-up care, medications, Prescriptions given X 3, 06:57 Patient left the ED. al5 Signatures: Jackie Trejo RN RN lg3 Jackelyn Moyerj6 Mare Alexander RN RN kd3 Baron Bledsoe MD MD sp4 Anastacia Washington RN RN al5 Corrections: (The following items were deleted from the chart) 06:30 06:00 BP 131 / 75; Pulse 98bpm; Resp 18bpm; Pulse Ox 94%; al5 al5 06:30 06:15 BP 131 / 75; Pulse 98bpm; Resp 18bpm; Pulse Ox 94%; al5 al5
--- NOTE | 2024-10-18 06:19 | EDPHYS ---
Physician Documentation [facility] Name: Gregory Pedraza Age: 39 yrs Sex: Male : 1985 Arrival Date: 10/18/2024 Time: 05:54 Bed 18 Private MD: ED Physician Baron Bledsoe HPI: 10/18 06:13 This 39 yrs old Male presents to ER via Ambulatory with complaints of Ear sp4 Pain. 19:58 Patient presents with complaint of acute left ear pain.. sp4 Historical: - Allergies: 06:04 PENICILLINS; lg3 - Home Meds: 06:04 None [Active]; lg3 - PMHx: 06:04 None; lg3 - PSHx: 06:04 None; lg3 - Immunization history:: Adult Immunizations up to date. - Infectious Disease History:: Denies. - Social history:: Smoking status: Patient denies any tobacco usage or history of. Patient uses alcohol, occasionally. - Family history:: not pertinent. ROS: 19:59 Constitutional: Negative for fever, chills, and weight loss, positive for left ear pain sp4 and discomfort 19:59 All other systems are negative, Exam: 19:59 Constitutional: This is a well developed, well nourished patient who is awake, alert, sp4 and in no acute distress. Head/Face: Normocephalic, atraumatic. Eyes: Pupils equal round and reactive to light, extra-ocular motions intact. Lids and lashes normal. Conjunctiva and sclera are not injected. Cornea within normal limits. Periorbital areas with no swelling, redness, or edema. ENT: Nares patent. No nasal discharge, no septal abnormalities noted. Oropharynx with no redness, swelling, or masses, exudates, or evidence of obstruction, uvula midline. Mucous membranes moist. Right ear exam is normal, left ear canal reveals swelling redness erythema and some purulence consistent with left otitis externa. Neck: Trachea midline, no thyromegaly or masses palpated, and no cervical lymphadenopathy. Supple, full range of motion without nuchal rigidity, or vertebral point tenderness. Chest/axilla: Normal chest wall appearance and motion. Nontender with no deformity. No lesions are appreciated. Cardiovascular: Regular rate and rhythm with a normal S1 and S2. No gallops, murmurs, or rubs. Normal PMI, no JVD. No pulse deficits. Respiratory: Lungs have equal breath sounds bilaterally, clear to auscultation and percussion. No rales, rhonchi or wheezes noted. No increased work of breathing, no retractions or nasal flaring. Abdomen/GI: Soft, with normal bowel sounds. No distension or tympany. No guarding or rebound. No evidence of tenderness throughout. Back: No spinal tenderness. No costovertebral tenderness. Skin: Warm, dry with normal turgor. Normal color with no rashes, no lesions, and no evidence of cellulitis. MS/ Extremity: Pulses equal, no cyanosis. Neurovascular intact. Full, normal range of motion. Neuro: Awake and alert, GCS 15, oriented to person, place, time, and situation. Cranial nerves II-XII grossly intact. Motor strength 5/5 in all extremities. Sensory grossly intact. Psych: Awake, alert, with orientation to person, place and time. Behavior, mood, and affect are within normal limits Vital Signs: 06:03 BP 148 / 96; Pulse 81; Resp 16 S; Temp 98.3(O); Pulse Ox 99% on R/A; Weight 90.72 kg lg3 (R); Height 5 ft. 8 in. (R); Pain 9/10; 06:30 BP 138 / 97; Pulse 95; Resp 18; Pulse Ox 95% on R/A; al5 06:56 BP 132 / 81; Pulse 90; Resp 18; Pulse Ox 96% on R/A; al5 06:03 Body Mass Index 30.41 (90.72 kg, 172.72 cm) lg3 06:03 Pain Scale: Adult lg3 [place] Coma Score: 19:59 Eye Response: spontaneous(4). Motor Response: obeys commands(6). Verbal Response: sp4 oriented(5). Total: 15. MDM: 06:19 Medical Screening Exam initiated sp4 20:00 Differential diagnosis: otitis media, otitis externa, acute otalgia, cerumen impaction. sp4 Data reviewed: vital signs, nurses notes, old medical records. ED course: Stable for discharge with p.o. antibiotic. Administered Medications: 06:29 Drug: Rocephin (cefTRIAXone) IM 1 grams IM once Route: IM; Site: right gluteus; al5 06:56 Follow up: Response: No adverse reaction al5 06:29 Drug: Ketorolac IM 60 mg IM once Route: IM; Site: right gluteus; al5 06:56 Follow up: Response: No adverse reaction; Pain is decreased al5 06:29 Drug: Acetaminophen PO 500 mg PO once Route: PO; al5 06:56 Follow up: Response: No adverse reaction; Pain is decreased al5 Disposition Summary: 10/18/24 06:19 Discharge Ordered Notes: Location: Home sp4 Problem: new sp4 Symptoms: have improved sp4 Condition: Stable sp4 Diagnosis - Other infective otitis externa, left ear sp4 Followup: sp4 - With: Yamilet Nunez MD - When: 7 - 10 days - Reason: Recheck today's complaints Discharge Instructions: - Discharge Summary Sheet sp4 - Otitis Externa, [id number]-[id number] sp4 Forms: - Patient Portal Instructions sp4 Prescriptions: - cefdinir 300 mg Oral capsule - take 1 capsule ORAL route 2 times per day for 10 days; 20 capsule; Refills: 0, sp4 Product Selection Permitted - Ibuprofen 800 mg Oral Tablet - take 1 tablet ORAL route every 8 hours As needed take with food; 30 tablet; sp4 Refills: 0, Product Selection Permitted - Ciprodex 0.3-0.1 % Otic drops, suspension - instill 4 drops OTIC route every 12 hours for 7 days for 7 days; 7 milliliter; sp4 Refills: 0, Product Selection Permitted Signatures: Jackie Trejo RN RN lg3 Baron Bledsoe MD MD sp4 Anastacia Washington RN RN al5
[2024-10-18] MEDS ORDERED: KETOROLAC 30 MG/ML INJ ONE (06:20)
[2024-10-18] MEDS ORDERED: CEFTRIAXONE 1000 MG/VIAL ONE (06:20)
[2024-10-18] MEDS ORDERED: LIDOCAINE 1% MPF 5 ML VIAL ONE (06:20)
[2024-10-18] MEDS ORDERED: ACETAMINOPHEN 500 MG TAB ONE (06:20)
[2024-10-18 07:02] VITALS: TEMP 98.3
[2024-10-18 07:04] VITALS: BP 132/81; O2SAT 96
== END 2024-10-18 06:57 | disposition home or self-care (01) ==
LOC: ER 05:54
DX: H60.392 Other infective otitis externa, left ear (principal)
CPT/HCPCS: 96372; 99284; J0696; J2003